=== PATIENT | male | born 1950 | race Caucasian/White ===

== ENCOUNTER → 2018-03-06 10:20 | Outpatient (BNVA) | payer MEDICARE, BC, SELFPAY | PROVIDERS: Visit Provider Student in an Organized Health Care Education/Training Program | DX: M75.81 Other shoulder lesions, right shoulder (principal); M19.032 Primary osteoarthritis, left wrist; I10 Essential (primary) hypertension | CPT/HCPCS: 20605; 20610; 99204; 99214; J1030; J1040; L3908 ==

== ENCOUNTER 2018-03-06 11:00 | Outpatient (CLI) | payer MEDICARE, BC, SELFPAY ==
--- NOTE | 2018-03-06 11:18 | DI.RAD_ITS ---
SYMPTOM/DIAGNOSISs: LEFT WRIST PAIN LEFT WRIST: Three views. No priors. There is marked narrowing of the scapho radial articulation. Subchondral sclerosis is seen. There is also some flattening of the articular surfaces in this region. There are also mild hypertrophic changes seen at the articulation between the scaphoid and the quadrangular bones. No acute fracture or dislocation is identified. There does appear to be mild widening of the scapholunate distance and scapholunate ligament tear cannot be excluded. There is a well corticated osseous density at the tip of the ulnar styloid process likely reflecting old injury. IMPRESSION: Degenerative changes of the left wrist particularly involving the scapho radial joint. 2. Question of widening of the scapholunate distance, raising the question of scapholunate ligament tear. Follow up as clinically appropriate.
--- NOTE | 2018-03-06 11:19 | DI.RAD_ITS ---
SYMPTOM/DIAGNOSIS: EVALUATE MID-ARM PAIN RIGHT HUMERUS: Two views. No bone or joint abnormality is identified. There is a calcification adjacent to the humeral head which may represent calcific tendinosis. The soft tissues are otherwise unremarkable. IMPRESSION: Negative examination.
== END 2018-03-06 11:20 ==
PROVIDERS: Visit Provider Student in an Organized Health Care Education/Training Program
DX: M79.621 Pain in right upper arm (principal); M75.31 Calcific tendinitis of right shoulder; M25.532 Pain in left wrist; M19.032 Primary osteoarthritis, left wrist
CPT/HCPCS: 20605; 20610; 99204; 99214; 73060; 73110; J1030; J1040; L3908

== ENCOUNTER 2018-03-30 00:58 | Outpatient (CLI) | payer MEDICARE, BC, SELFPAY ==
[2018-03-31 09:31] LABS: PSA, Diagnostic 4.2 ng/ml (0-4.5)
== END 2018-03-30 01:18 ==
PROVIDERS: PCP Emergency Medicine; Visit Provider Urology
DX: R97.20 Elevated prostate specific antigen [PSA] (principal); Z12.6 Encounter for screening for malignant neoplasm of bladder
CPT/HCPCS: 36415; 84153

== ENCOUNTER → 2018-11-04 08:22 | Outpatient (BNVA) | payer MEDICARE, BC, SELFPAY | PROVIDERS: PCP Emergency Medicine; Referring Provider Emergency Medicine; Visit Provider Student in an Organized Health Care Education/Training Program | DX: M65.331 Trigger finger, right middle finger (principal); M75.81 Other shoulder lesions, right shoulder; M25.511 Pain in right shoulder; C83.12 Mantle cell lymphoma, intrathoracic lymph nodes | CPT/HCPCS: 99212 ==

== ENCOUNTER → 2018-11-18 14:07 | Outpatient (BNVA) | payer MEDICARE, BC, SELFPAY | PROVIDERS: PCP Emergency Medicine; Referring Provider Emergency Medicine; Visit Provider Student in an Organized Health Care Education/Training Program | DX: M65.331 Trigger finger, right middle finger (principal); I10 Essential (primary) hypertension | CPT/HCPCS: 20600; 99212; 99213; J1030 ==

== ENCOUNTER 2019-04-26 11:09 | Outpatient (CLI) | payer MEDICARE, BC, SELFPAY ==
[2019-04-27 10:44] LABS: PSA, Diagnostic 6.6 ng/mL (0.0-6.5)
== END 2019-04-26 11:29 ==
PROVIDERS: PCP Emergency Medicine; Visit Provider Urology
DX: N52.9 Male erectile dysfunction, unspecified (principal); N40.0 Benign prostatic hyperplasia without lower urinary tract symptoms; R97.20 Elevated prostate specific antigen [PSA]; M65.331 Trigger finger, right middle finger; M19.032 Primary osteoarthritis, left wrist; M72.0 Palmar fascial fibromatosis [Dupuytren]
CPT/HCPCS: 36415; 99213; 84153; L3908

== ENCOUNTER 2019-05-11 07:00 | Outpatient (CLI) | payer MEDICARE, BC, SELFPAY ==
[2019-05-11 12:48] LABS: Abs Immature Grans 0.02 k/cumm (0.0-0.09); Absolute Basophil Count 0.04 k/cumm (0.0-0.2); Absolute Eosinophil Count 0.14 k/cumm (0.0-0.7); Absolute Lymphocyte Count 1.44 k/cumm (1.2-3.4); Absolute Monocyte Count 0.81 k/cumm (0.11-0.7); Absolute Neutrophil Count 6.46 k/cumm (1.2-6.7); Basophils % 0.4; Eosinophils % 1.6; HCT 42.4 % (40.0-50.0); HGB 14.3 g/dL (13.5-17.5); Immature Grans % 0.2; Lymphocytes % 16.2; Mean Corp. HGB Concentration 33.7 g/dL (32.0-36.0); Mean Corpuscular Hemoglobin 31.3 pg (27.0-33.0); Mean Corpuscular Volume 92.8 fL (80-95); Mean Platelet Volume 9.4 fL (8.0-11.0); Monocytes % 9.1; Neutrophils % 72.5; Platelet Count 269 x1000/uL (130-400); RBC 4.57 m/cumm (4.50-6.00); RBC Distribution Width 13.3 % (11.8-14.1); White Blood Cell Count 8.91 k/cumm (4.4-10.8)
[2019-05-11 13:13] LABS: ALT 27 U/L (16-63); AST 26 U/L (15-37); Albumin 4.2 g/dL (3.4-5.0); Alkaline Phosphatase 69 U/L (46-116); Amylase 57 U/L (25-115); Anion Gap 10.3 mmol/L (3-11); BUN 18 mg/dL (7-18); Bilirubin, Total 0.7 mg/dL (0.2-1.0); C-Reactive Protein 0.72 mg/dL (0.0-0.3); CO2 27.7 mmol/L (21.0-32.0); CREATININE 1.08 mg/dL (0.70-1.30); Calcium 9.6 mg/dL (8.5-10.1); Chloride 106 mmol/L (98-107); Glucose 116 mg/dL (74-106); Lipase 122 U/L (73-393); Potassium 3.7 mmol/L (3.5-5.1); Sodium 144 mmol/L (136-145); Total Protein 7.4 g/dL (6.4-8.2)
[2019-05-11 13:39] LABS: GGT 42 U/L (15-85)
[2019-05-11 13:55] LABS: ESR 22 mm/hr (1-20)
== END 2019-05-11 07:20 ==
PROVIDERS: PCP Emergency Medicine; Visit Provider Emergency Medicine
DX: E78.5 Hyperlipidemia, unspecified (principal); R19.8 Other specified symptoms and signs involving the digestive system and abdomen
CPT/HCPCS: 36415; 80053; 83690; 85652; 82150; 82977; 85025; 86140

== ENCOUNTER 2019-05-18 10:45 | Day surgery (SDC) | payer MEDICARE, BC, SELFPAY ==
--- NOTE | 2019-05-18 07:56 | PDOC.DSDIS_ITS ---
Discharge Plan Disposition Patient Disposition: HOME Condition: Good Discharge Details Reason For Visit: right middle trigger finger;Dupuytrens contracture Attending Provider: Varun Phillips Primary Care Provider: Jeffery Casiano Home Meds and New Rx's Prescriptions: New hydrocodone-acetaminophen 5-325 mg tablet 1 tab PO Q6H PRN (Reason: severe pain) Qty: 6 RF: 0 acetaminophen 500 mg tablet 500 mg PO Q6H PRN (Reason: pain) Qty: 60 RF: 2 Continued ibuprofen 200 mg capsule 200 mg PO TID PRNRF: 0 capsaicin [Capzasin-HP] 0.1 % cream 1 applic TP DAILY PRN RF: 0 tamsulosin 0.4 mg capsule 0.4 mg PO DAILY RF: 0 finasteride 5 mg tablet 5 mg PO DAILY RF: 0 amitriptyline 25 mg tablet 25 - 75 mg PO QHS Qty: 90 RF: 3 celecoxib 200 mg capsule 200 mg PO DAILY Qty: 30 RF: 4 omeprazole 20 mg capsule,delayed release(DR/EC) 20 mg PO BID RF: 0 Mylanta Maximum Strength 400-400-40 mg/5 mL suspension 30 ml PO BID RF: 0 aspirin [Aspirin Low-Strength] 81 MG tablet,chewable 81 mg PO DAILY RF: 0 clindamycin HCl 300 MG capsule 300 mg PO PRN RF: 0 ondansetron HCl 8 MG tablet 8 mg PO PRN RF: 0 triamcinolone acetonide 15 GM cream 15 gm Topical bid prn RF: 0 sertraline 50 mg tablet 50 mg PO DAILY Qty: 90 RF: 3 amlodipine [Norvasc] 10 mg tablet 10 mg PO DAILY Qty: 90 RF: 4 clonazepam [Klonopin] 1 mg tablet 1 mg PO HS Qty: 90 RF: 3 Discharge Instructions Additional Instructions: Dupuytren's Contracture Discharge Instructions Activity: You may use your fingers for light activity. You should limit any excessive motion or forceful gripping until the sutures have been removed. Dressings: You should keep the initial surgical dressing in place for at least 3 days. You may remove your dressings and get the wound wet after 3 days. You should keep the dressings and the wound clean at all times. You may keep the initial dressing in place until your follow-up but keep the wound covered with light gauze until the sutures are removed. Medications: - You should take Tylenol and Ibuprofen around the clock as prescribed or per glass production machine operator's recommendations. - You have Hydrocodone prescribed for breakthrough pain control. Take only as needed and limit use as much as possible. This may cause constipation. Follow-up: 7-10 days for wound check and suture removal. Stand Alone Forms: Alan Bronson Finger Release Referrals: Varun Phillips MD [ [facility] STAFF PHYSICIAN] - Activity:: Activity as Tolerated Remove Dressings/Wound Care:: 72 hours Shower/Bathe:: 72 hours Diet:: As Tolerated Discharge Orders Discharge Orders: Discharge Order (Routine); Ordered 05/18/19 Ordered By: Amelia Johnson DS: Diagnosis Discharge Diagnosis (1) Dupuytren's contracture of right hand: Status: Acute (2) Trigger finger, right middle finger: Status: Acute
[2019-05-18 11:03] VITALS: BP 138/84; PULSE 62; RESP 16; TEMP 36.1; O2SAT 96
[2019-05-18] MEDS: Clindamycin 300 MG CAP 600 MG PO (13:29)
[2019-05-18] MEDS: Sodium Bicarbonate 50 MEQ/50 ML VIAL (13:48)
--- NOTE | 2019-05-18 16:29 | W.PM.OP ---
Date of service: 05/18/19 Time of Service: 16:29 Operative Note Operative Note DATE OF PROCEDURE: 05/18/19 PRE-OP DIAGNOSIS: Right middle finger trigger finger, right palmar fasciitis (Dupuytren's) POST-OP DIAGNOSIS: same PROCEDURE: Right middle finger trigger finger release and partial palmar fasciectomy SURGEON: Varun Phillips ANESTHESIA: local ESTIMATED BLOOD LOSS: 5 PATHOLOGY: none sent TOURNIQUET TIME: 0 COMPLICATIONS: None Patient was transported to: same day Patient's condition: stable Indications: I have seen Idalia in clinic for symptoms of a trigger finger and a central cord of Dupuytren's disease. The catching, clicking, locking, limited motion and pain restricted function. The diagnosis of trigger finger was evident. The symptoms had not responded to conservative measures. I discussed trigger finger release with the patient. I reviewed the risks of the procedure to include, but not limited to, bleeding, infection, pain, stiffness, incomplete release, damage to nerves or vessels, continued catching, recurrence. Despite these risks, the patient elected to proceed. Findings: There is a thickened and scarred central cord. This was transected proximally in the palm and resected and whole up to the level of the MCP joint. There was a tightened A1 maddy which was released. The flexor tendons were inspected and the patient was able to move the finger without any catching, clicking, or locking. Procedure Description: Idalia was greeted in the preoperative holding area where the correct side was identified and marked. The consent was reviewed with the patient and signed. All questions were answered. He was taken back to the operating room. The patient was placed into the supine position on the operating room table with the right arm on an arm board. All bony prominences were well padded. No prophylactic antibiotics were administered since this was a clean, elective hand surgical case. The right arm was then prepped with Chloraprep and draped in a standard fashion with stockinette and extremity drape. A timeout to confirm correct identity, side and site, procedure, allergies, anesthesia, and medical concerns was performed. The surgical site was marked as a Blaze type incision from the MCP joint and across the palmar creases overlying the flexor tendons and the central cord. This was confirmed with palpation during finger flexion. This area was then anesthetized with 1% Lidocaine with epinephrine and buffered with sodium bicarbonate. The patient tolerated this well and once the anesthetic had setup, the procedure began. An incision was made through skin only. The deep tissues were dissected bluntly. The fibrous central cord was resected from the overlying skin. It was followed proximally staying in the plane between the skin and the cord. It was then transected in a very proximal position and elevated out of the hand. Attachments over its dorsal surface were transected against the cord. This was taken all the way up to the level of the MCP joint and then released. There is no notable residual cord in this area. Some blunt dissection was then performed to identify the flexor tendons and the A1 maddy. Once the A1 maddy and flexor tendons were identified the soft tissue including neurovascular structures were retracted medially and laterally. There were no crossing structures over the A1 maddy. The proximal edge of the maddy was identified and the maddy was incised with tenotomy scissors. There was a release of the tendons once this was fully released. There was some notable synovial fluid which also released once the A1 maddy was transected. The tendons were then removed from the wound and inspected. Excess synovium was resected. The tendons were then returned and the patient was asked to move the finger into deep flexion and back to extension. There was no recreation of the pre-operative symptoms. The hand was then once more inspected for any A0 maddy or area of possible constriction. The wound was then irrigated and the skin was closed with a 4-0 Nylon. This was dressed with gauze and a Conform dressing. The patient tolerated the procedure well and was returned to the Same Day Surgery area in a stable condition suffering no known complication.
== END 2019-05-18 14:30 | disposition home or self-care (01) ==
LOC: SUR 10:46
PROVIDERS: PCP Emergency Medicine; Visit Provider Student in an Organized Health Care Education/Training Program
PROC: (CPT 26055; principal; 2019-05-18 13:45)
PROC: (CPT 26045; 2019-05-18 13:45)
DX: M72.0 Palmar fascial fibromatosis [Dupuytren] (principal); M65.331 Trigger finger, right middle finger
CPT/HCPCS: 26123; 26055; L3908

== ENCOUNTER → 2019-05-31 14:57 | Outpatient (BNVA) | payer MEDICARE, BC, SELFPAY | PROVIDERS: PCP Emergency Medicine; Referring Provider Emergency Medicine; Visit Provider Student in an Organized Health Care Education/Training Program | DX: Z47.89 Encounter for other orthopedic aftercare (principal); M65.331 Trigger finger, right middle finger; M72.0 Palmar fascial fibromatosis [Dupuytren] ==

== ENCOUNTER → 2019-06-04 12:46 | Outpatient (BNVA) | payer MEDICARE, BC, SELFPAY | PROVIDERS: PCP Emergency Medicine; Referring Provider Emergency Medicine; Visit Provider Physical Therapy Assistant | DX: K21.9 Gastro-esophageal reflux disease without esophagitis (principal); Z12.11 Encounter for screening for malignant neoplasm of colon; Z86.010 Personal history of colon polyps; I10 Essential (primary) hypertension | CPT/HCPCS: 99213 ==

== ENCOUNTER 2019-06-10 07:05 | Day surgery (SDC) | payer MEDICARE, BC, SELFPAY ==
[2019-06-10 07:19] VITALS: BP 133/88; PULSE 64; RESP 16; TEMP 36.4; O2SAT 96
[2019-06-10] MEDS: Lactated Ringers 1,000 ML 80 ML IV (07:45)
[2019-06-10] MEDS: Sodium Citrate 30 ML CUP (08:30)
--- NOTE | 2019-06-10 08:30 | STOM_PTH ---
PATIENT: Idalia Estrada LOC: [facility] U#:[id number] AGE/SX: 68/M ROOM: RE06/10/[address]: Amelia Walter : 1950 BED: DIS: 06/10/2019 SPEC #: [id number] RECD: 06/10/19 12:31 STATUS: MITCHELL KEITH #: [id number] NERISSA: 06/10/19 08:[address]: Amelia Walter DEPT: Surgical Specimen RECD BY: Melany Lorenzo ENTERED: 06/10/19 12:34 SP TYPE: STOMACH OTHR DR: Jeffery Casiano DO Tissues: 1 - BIOPSY BOWEL 2 - STOMACH BIOPSY 3 - STOMACH BIOPSY 4 - ESOPHAGUS BIOPSY 5 - ESOPHAGUS BIOPSY 6 - BIOPSY BOWEL 7 - BIOPSY BOWEL 8 - BIOPSY BOWEL Procedures: GROSS AND MICRO LEVEL 4 Comments: [id number]
--- NOTE | 2019-06-10 09:39 | W.PM.DSUDISC ---
Discharge Plan Disposition Patient Disposition: HOME Condition: Good Discharge Details Reason For Visit: SCREENING,GERD Attending Provider: Amelia Walter Primary Care Provider: Jeffery Casiano Home Meds and New Rx's Prescriptions: New pantoprazole [Protonix] 40 mg tablet,delayed release (DR/EC) 40 mg PO DAILY Qty: 30 RF: 12 sucralfate [Carafate] 1 gram tablet 1 gm PO QACHS PRN (Reason: heartburn) Qty: 120 RF: 12 Continued capsaicin [Capzasin-HP] 0.1 % cream 1 applic TP DAILY PRN RF: 0 tamsulosin 0.4 mg capsule 0.4 mg PO DAILY RF: 0 ibuprofen 200 mg capsule 200 mg PO PRN PRNRF: 0 finasteride 5 mg tablet 5 mg PO DAILY RF: 0 Mylanta Maximum Strength 400-400-40 mg/5 mL suspension 20 ml PO TID RF: 0 clindamycin HCl 300 MG capsule 300 mg PO PRN RF: 0 triamcinolone acetonide 15 GM cream 15 gm Topical bid prn RF: 0 sertraline 50 mg tablet 50 mg PO DAILY Qty: 90 RF: 3 clonazepam [Klonopin] 1 mg tablet 1 mg PO HS Qty: 90 RF: 3 acetaminophen 500 mg tablet 500 mg PO Q6H PRN (Reason: pain) Qty: 60 RF: 2 amlodipine [Norvasc] 10 mg tablet 20 mg PO DAILY RF: 0 Discontinued omeprazole 20 mg capsule,delayed release(DR/EC) 20 mg PO BID RF: 0 polyethylene glycol 3350 17 gram/dose powder 238 g PO ONCE Qty: 238 RF: 0 bisacodyl [Dulcolax (bisacodyl)] 5 mg tablet,delayed release (DR/EC) 5 mg PO ONCE Qty: 4 RF: 0 aspirin [Aspirin Low-Strength] 81 MG tablet,chewable 81 mg PO DAILY RF: 0 Discharge Instructions Additional Instructions: Findings: Lg hiatal henria chronic reflux mult polyps. prob repeat CE in 3 yrs time Continue with lifestyle modifications: no alcohol, tobacco products, Aspirin or NSAID's (ibuprofen, Motrin, Naprosyn, aleve, etc), soda pop/any carbonated beverages, caffeine (including tea & chocolate). Try to limit: and acidic foods, (tomatoes, citrus, onions, peppermints) spicy or fried/fatty foods. Do not lie down for 30 minutes after eating, and do not eat 2 hours prior to bedtime. Avoid wearing tight fitting clothing/ belts. Take a carafate before taking any NSAID's. Stop taking daily ASA. Stop prilosec and switch to Protonix. Use Carafate x4 /day for two weeks, than change to as needed and before taking any NSAID's. Follow up: 2 wks in office Please call if you develop: fevers >101.5 Nausea or Vomiting Abdominal pain that is not transient DAY SURGERY UNIT POST COLONOSCOPY INSTRUCTIONS 1. Because there will be medication in your system for the next 24 hours, you may feel a little sleepy. Your coordination will be affected. Therefore: a. Do not drive or operate dangerous equipment for 24 hours. b. Do not drink alcohol beverages for 24 hours (not even beer). c. Plan to go home and rest for the day. 2. Generally there are no restrictions on your activity after a day or so has gone by, but you may feel a bit fatigued for a few days. 3 After you arrive home you may have a light meal and return to a normal diet as you can tolerate it without feeling sick to your stomach. 4. After surgery, you may feel pain or discomfort. This should be only transient, but if it persists please contact your doctor. 5. If there are any questions regarding the findings of your procedure, please feel free to contact your doctor. 6. If you are unable to contact your doctor with a problem, contact the hospital at [phone]. 7. Continue all your regular medications unless directed otherwise. I understand the above instructions and have no questions. Signature of Patient or Responsible Adult Escort Date/Time Name of Responsible Adult Escort Signature of Nurse Date/Time Stand Alone Forms: DSU Post EGD Instructions, Ania Amor (DSU) Discharge Orders Discharge Orders: Discharge Order (Routine); Ordered 06/10/19 Ordered By: Amelia Walter
--- NOTE | 2019-06-10 09:52 | ENDO_ITS ---
Date of service: 06/10/19 Time of Service: 09:52 Endoscopy Report DATE OF PROCEDURE: 06/10/19 PRE-OP DIAGNOSIS: breakthru s/s of GERD/A. polyps POST-OP DIAGNOSIS: other (lg hiatal hernia/reflux mult polyps ) PROCEDURE: EGD and BX Ce and polyp SURGEON: Amelia Walter ANESTHESIA: GETA ESTIMATED BLOOD LOSS: 3 PATHOLOGY: other DISPOSITION: same day PREP: Miralax/Dulcolax COLONOSCOPY RETRACTION TIME: 20 mins PROCEDURE DESCRIPTION: After informed consent was obtained the patient was take to the procedure room and placed in a supine position. Monitors were applied and a time out was done. The patients name, date of , procedure type, allergies to medications and metal in their body was reviewed. A bite block was placed and the patient was sedated. Once sedated and comfortable the larissa roscope was advanced through the oropharynx which was grossly normal into the esophagus. The proximal and mid-esophagus were nl. In the distal esophagus there was esophagitis noted. There were changes noted that could be associated w/ Barett's. All specimens are retrieved and no bleeding is noted. The scope was advanced into the stomach and through the pylorus into the 3rd portion of the duodenum. The duodenum was noted to be nl. Biopsies were done. The scope was retracted back into the stomach and biopsies were done to rule out H. pylori. There were no ulcers or gastritis. The scope was retroflexed. The cardia and fundus were noted to be normal. There lg a hiatal hernia noted. The scope was retracted back into the esophagus and biopsies were done of the GE junction to rule out Anderson's. The Z line was irregular. scopes were than exchanged. Once sedated and comfortable a rectal exam was done. External exam was normal. Internal exam revealed a normal sphincter tone and no palpable masses. The scope was then introduced and retrofelexed. no internal hemorrhoids were identified. The scope was then advanced to the cecum w/ difficult all specimens are retrieved and no bleeding is noted. The TI and appendiceal orifice were identified. The prep was good. The scope was then slowly retracted over 20 minutes back into the rectum. Polyps were removed at: 80cm x3 w/ hot snare. 70cm x2 w/ hot forcept x2. 60cm transverse colon w/ hot forcept. .No diverticula, AVM's. The mucosa and vascular appear nl and healthy. The scope was removed and the patient was woken up and taken back to Same day surgery in stable condition. The patient tolerated the procedure well and there were no immediate complications. Follow up: The patient should follow up in 3 years- path pd, unless they develop changes in bowel habits or other new gastrointestinal complaints.
[2019-06-10 10:25] VITALS: BP 128/81; PULSE 48; RESP 16; TEMP 36.3; O2SAT 99
== END 2019-06-10 11:27 | disposition home or self-care (01) ==
PROVIDERS: PCP Emergency Medicine; Visit Provider Surgery
PROC: (CPT 45385; principal; 2019-06-10 08:15)
DX: Z12.11 Encounter for screening for malignant neoplasm of colon (principal); D12.3 Benign neoplasm of transverse colon; D12.0 Benign neoplasm of cecum; Z86.010 Personal history of colon polyps; K21.0 Gastro-esophageal reflux disease with esophagitis; K31.89 Other diseases of stomach and duodenum; K29.80 Duodenitis without bleeding; K44.9 Diaphragmatic hernia without obstruction or gangrene; I10 Essential (primary) hypertension
CPT/HCPCS: 45385; 45384; 43239; 88305; J2001; J2704

== ENCOUNTER → 2019-06-30 08:57 | Outpatient (BNVA) | payer MEDICARE, BC, SELFPAY | PROVIDERS: PCP Emergency Medicine; Referring Provider Emergency Medicine; Visit Provider Surgery | DX: K63.5 Polyp of colon (principal) | CPT/HCPCS: 99214 ==

== ENCOUNTER 2019-08-16 10:07 | Day surgery (SDC) | payer MEDICARE, BC, SELFPAY ==
[2019-08-16 10:40] VITALS: BP 126/82; PULSE 59; RESP 16; TEMP 36.7; O2SAT 96
[2019-08-16] MEDS: Lactated Ringers 1,000 ML 100 ML IV (11:15)
--- NOTE | 2019-08-16 11:27 | HPE_ITS ---
Date of service: 08/16/19 Time of Service: 11:28 Assessment and Plan Assessment and plan (1) Serrated adenoma of colon: Status: Acute (2) Tubulovillous adenoma polyp of colon: Status: Acute Assessment and plan: Informed consent is obtained for the procedural (explained in simple layman's terms that the pt and/or family could understand) explaining risks vs benefits and alternatives to the procedure and consequences if we do not do the procedure and need/rational for the procedure. Risks include but are not limited to: bleeding, infection, perforation of esophagus, stomach, colon, small intestines, bronchus or trachea, or PTX. This would necessitate emergency surgery to repair the damage w/ possible ostomy; and other associated complications w/ the required surgery. Also complications of anesthesia including aspiration, ND/CVA/. 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 70cm x2 w/ hot forcept x2. 60cm transverse colon w/ hot forcept. Pt has a hx of polyps and extensive hx of familial CRC. pt is here toay for jo CE He does have lymphoma and [place] [facility] [place] of Systems All systems reviewed & are unremarkable except as noted in HPI and below [facility] Medical History Duodenitis without hemorrhage (Acute) Dupuytren's contracture of right hand (Acute) Dysplastic colon polyp (Acute) Elevated PSA (Acute) Esophagitis on biopsy (Acute) Gastro-esophageal reflux (Chronic) Gastropathy (Acute) Hiatal hernia (Chronic) Hyperlipidemia (Acute) Hypertension (Chronic) Internal hemorrhoids (Acute) Mantle cell lymphoma (Acute) Serrated adenoma of colon (Acute) Sleep disturbance (Acute) Tubulovillous adenoma polyp of colon (Acute) Surgical History Colonoscopy - [facility] [place] 2013 History of total bilateral knee replacement (TKR) (Acute) Family History Brother Mantle cell lymphoma Social History Smoking/Tobacco Use Status: Former Tobacco Use Quit Date: 06/09/83 Alcohol Intake: current Alcohol Intake frequency: a few times a month Alcohol type: beer Drug use: Occasionally Substance use type: marijuana Details: T-6 WEEKS, Liquid oil (THC and CBD) Household members: spouse Current gender identity: male Do you feel safe at home: Yes Do you feel safe in your relationship?: Yes Meds Home Medications and Allergies Home Medications Medication Instructions Recorded Confirmed Type clindamycin HCl 300 mg PO PRN cap 03/05/16 08/16/19 History tamsulosin 0.4 mg capsule 0.4 mg PO DAILY 05/26/18 08/16/19 History finasteride 5 mg tablet 5 mg PO DAILY 08/27/18 08/16/19 History aluminum-mag hydroxide-simethicone 20 ml PO TID ml 05/14/19 08/16/19 History 400 mg-400 mg-40 mg/5 mL oral susp acetaminophen 500 mg PO Q6H PRN #60 tab 05/18/19 08/16/19 Rx amlodipine [Norvasc] 20 mg PO DAILY 06/10/19 08/16/19 History pantoprazole [Protonix] 40 mg PO DAILY #30 tab 06/10/19 08/12/19 Rx sucralfate [Carafate] 1 gm PO QACHS PRN #120 tab 06/10/19 08/16/19 Rx clonazepam 1 mg tablet 1 mg PO HS #90 tab 06/23/19 08/16/19 Rx bisacodyl 5 mg tablet,delayed 5 mg PO ONCE #4 tab 07/06/19 08/16/19 Rx release polyethylene glycol 3350 17 238 g PO ONCE #238 gm 07/06/19 08/12/19 Rx gram/dose oral powder sertraline 50 mg tablet 50 mg PO DAILY #90 tab-cap 07/23/19 08/16/19 Rx Allergies Allergy/AdvReac Type Severity Reaction Status Date / Time Penicillins Allergy Severe HIVES Verified 08/16/19 10:32 Cephalosporins Allergy Intermediate Hives Verified 08/16/19 10:32 Sulfa (Sulfonamide Allergy Intermediate HIVES Verified 08/16/19 10:32 Antibiotics) rituximab AdvReac Intermediate Other (See Verified 08/16/19 10:32 Comment) FABBY Inhibitors AdvReac Unknown COUGH Verified 08/16/19 10:32 Exam Const General: cooperative, healthy appearing, comfortable, no acute distress, well developed and well groomed Nutritional Appearance: average body habitus and well nourished Orientation: alert, awake and oriented x3 HENMT Head: normal to inspection, normocephalic and atraumatic Ears: hearing grossly normal bilaterally and external ears normal General nose exam: external nose normal Face and sinus: normal facial exam and sinuses nontender Mouth: oral mucosae normal, lip normal, tongue normal and moist mucous membranes Teeth and gingiva: dentition normal Eyes General: appearance normal, both eyes and all related structures Conjunctivae: conjunctivae normal Sclera: sclerae normal Pupils: PERRL Neck Neck: normal visual inspection and full ROM Chest Chest: normal inspection of the chest Resp Effort & Inspection: normal respiratory effort, able to speak in complete sentences, no cough, no nasal flaring, not tachypneic and no use of accessory muscles Auscultation: clear to auscultation bilaterally, no rales, no rhonchi and no wheezes Cardio Jugular venous pressure: no JVD Rate: regular rate Rhythm: regular rhythm GI Inspection: normal to inspection, no edema and non-distended Palpation: soft, no masses, nontender and No ascites Auscultation: normal bowel sounds Skin General skin exam: no rashes or lesions noted Trauma: no lacerations or abrasions Neuro General: alert, oriented x3, oriented, gait normal, moves all extremities, no focal motor deficits and CN's II-XI intact bilaterally Cognition: normal cognition Speech: speech normal Gait: normal gait Motor: muscle tone normal throughout Extrem General: normal to inspection, full ROM and no clubbing, cyanosis or edema Psych Appearance: grossly normal and well kempt Mental Status: mental status grossly normal Speech and Movement: speech and movement normal Affect: normal affect Results Last Vital Signs Temp 36.7 C 08/16/19 10:40 Pulse 59 L 08/16/19 10:40 Resp 16 08/16/19 10:40 BP 126/82 08/16/19 10:40 Pulse Ox 96 08/16/19 10:40
--- NOTE | 2019-08-16 13:02 | NUR.NOTE ---
Assumed care at 1300. A&O X3. Up to BR to void. IV access patent and intact with IV fluid infusing well. Waiting for procedure.Nursing Note:
--- NOTE | 2019-08-16 13:55 | BOWEL_PTH ---
PATIENT: Idalia Estrada LOC: [facility] U#:[id number] AGE/SX: 68/M ROOM: RE08/16/[address]: Amelia Walter : 1950 BED: DIS: 08/16/2019 SPEC #: [id number] RECD: 08/16/19 18:09 STATUS: MITCHELL REQ #: [id number] NERISSA: 08/16/19 13:[address]: Amelia Walter DEPT: Surgical Specimen RECD BY: Melany Lorenzo ENTERED: 08/16/19 18:09 SP TYPE: Bowel OTHR DR: Jeffery Casiano DO Tissues: 1 - BIOPSY BOWEL Procedures: GROSS AND MICRO LEVEL 4 Comments: [id number]
--- NOTE | 2019-08-16 14:33 | W.COLOREPORT ---
Date of service: 08/16/19 Time of Service: 21:44 Colonoscopy Report Date of procedure: 08/16/19 Pre-op diagnosis general: dysplastic polyps Post-op diagnosis procedure note: same Procedure: polyp in ceceum Surgeon: Zaheer Corona Anesthesia proc note operative: GETA Estimated blood loss (mL): 1 Pathology: other Complications: None Disposition: same day Prep: Miralax/Dulcolax Retraction Time: 15 Procedure Description: After informed consent was obtained the patient was taken to the procedure room and placed in a left decubitous position. Monitors were applied and a time out was done. The patients name, date of , procedure, allergies to medications and metal in their body was reviewed. The patient was then sedated. Once sedated and comfortable a rectal exam was done. External exam was normal. Internal exam revealed a normal sphincter tone and no palpable masses. The scope was then introduced and retrofelexed. Grade II internal hemorrhoids were identified. The scope was then advanced to the cecum w/out difficulty. The TI and appendiceal orifice were identified. The prep was good. The scope was then slowly retracted over 15 minutes back into the rectum. Polyps were removed at x2 in ceum. Specimen is retrieved and no bleeding is noted. The polyps that were previously 60/70/80 centimeters?there is no signs of any residual polyp process. Few small scattered diverticuli in the sigmoid colon. No signs of active bleeding or infection. The scope was removed and the patient was woken up and taken back to Same day surgery in stable condition. The patient tolerated the procedure well and there were no immediate complications. Follow up: The patient should follow up in 6m unless they develop changes in bowel habits or other new gastrointestinal complaints.
--- NOTE | 2019-08-16 14:35 | PDOC.DSDIS_ITS ---
Discharge Plan Disposition Patient Disposition: HOME Condition: Good Discharge Details Reason For Visit: SCREENING Attending Provider: Amelia Walter Primary Care Provider: Jeffery Casiano Home Meds and New Rx's Prescriptions: Continued tamsulosin 0.4 mg capsule 0.4 mg PO DAILY RF: 0 finasteride 5 mg tablet 5 mg PO DAILY RF: 0 Mylanta Maximum Strength 400-400-40 mg/5 mL suspension 20 ml PO TID RF: 0 clindamycin HCl 300 MG capsule 300 mg PO PRN RF: 0 clonazepam [Klonopin] 1 mg tablet 1 mg PO HS Qty: 90 RF: 3 sertraline 50 mg tablet 50 mg PO DAILY Qty: 90 RF: 3 acetaminophen 500 mg tablet 500 mg PO Q6H PRN (Reason: pain) Qty: 60 RF: 2 amlodipine [Norvasc] 10 mg tablet 20 mg PO DAILY RF: 0 pantoprazole [Protonix] 40 mg tablet,delayed release (DR/EC) 40 mg PO DAILY Qty: 30 RF: 12 sucralfate [Carafate] 1 gram tablet 1 gm PO QACHS PRN (Reason: heartburn) Qty: 120 RF: 12 Discontinued polyethylene glycol 3350 17 gram/dose powder 238 g PO ONCE Qty: 238 RF: 0 bisacodyl [Dulcolax (bisacodyl)] 5 mg tablet,delayed release (DR/EC) 5 mg PO ONCE Qty: 4 RF: 0 Discharge Instructions Additional Instructions: Findings: x1 small cecal polyp today polyps at 60/70/80cm- no residual Dx today. Follow up: repeat scopes in 6m Please call if you develop: fevers >101.5 Nausea or Vomiting Abdominal pain that is not transient DAY SURGERY UNIT POST COLONOSCOPY INSTRUCTIONS 1. Because there will be medication in your system for the next 24 hours, you may feel a little sleepy. Your coordination will be affected. Therefore: a. Do not drive or operate dangerous equipment for 24 hours. b. Do not drink alcohol beverages for 24 hours (not even beer). c. Plan to go home and rest for the day. 2. Generally there are no restrictions on your activity after a day or so has gone by, but you may feel a bit fatigued for a few days. 3 After you arrive home you may have a light meal and return to a normal diet as you can tolerate it without feeling sick to your stomach. 4. After surgery, you may feel pain or discomfort. This should be only transie nt, but if it persists please contact your doctor. 5. If there are any questions regarding the findings of your procedure, please feel free to contact your doctor. 6. If you are unable to contact your doctor with a problem, contact the hospital at [phone]. 7. Continue all your regular medications unless directed otherwise. I understand the above instructions and have no questions. Signature of Patient or Responsible Adult Escort Date/Time Name of Responsible Adult Escort Signature of Nurse Date/Time Activity:: No lifting over 20 pounds or strenuous activity x24 hours. 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
[2019-08-16 14:59] VITALS: BP 134/86; PULSE 50; RESP 16; TEMP 36.4; O2SAT 97
== END 2019-08-16 15:28 | disposition home or self-care (01) ==
PROVIDERS: PCP Emergency Medicine; Visit Provider Surgery
PROC: 0DJD8ZZ Inspection of Lower Intestinal Tract, Via Natural or Artificial Opening Endoscopic (ICD-10-PCS; CPT 45378; principal; 2019-08-16 11:30)
DX: Z12.11 Encounter for screening for malignant neoplasm of colon (principal); Z86.010 Personal history of colon polyps; K63.5 Polyp of colon; K64.1 Second degree hemorrhoids; K57.30 Diverticulosis of large intestine without perforation or abscess without bleeding; I10 Essential (primary) hypertension; K21.9 Gastro-esophageal reflux disease without esophagitis
CPT/HCPCS: 45380; 88305; NC

== ENCOUNTER → 2020-03-17 14:26 | Outpatient (BNVA) | payer MEDICARE, BC, SELFPAY | PROVIDERS: PCP Emergency Medicine; Referring Provider Emergency Medicine; Visit Provider Surgery | DX: Z12.11 Encounter for screening for malignant neoplasm of colon (principal); Z86.010 Personal history of colon polyps; Z80.0 Family history of malignant neoplasm of digestive organs | CPT/HCPCS: 99212 ==

== ENCOUNTER 2020-03-23 08:04 | Day surgery (SDC) | payer MEDICARE, BC, SELFPAY ==
[2020-03-23 08:05] VITALS: BP 131/86; PULSE 61; RESP 18; TEMP 36.8; O2SAT 97
[2020-03-23] MEDS: Lactated Ringers 1,000 ML 80 ML IV (08:45)
--- NOTE | 2020-03-23 09:50 | BOWEL_PTH ---
PATIENT: Idalia Estrada LOC: [facility] U#:[id number] AGE/SX: 69/M ROOM: RE03/23/[address]: Amelia Walter : 1950 BED: DIS: 03/23/2020 SPEC #: [id number] RECD: 03/23/20 12:44 STATUS: MITCHELL REQ #: [id number] NERISSA: 03/23/20 09:[address]: Amelia Walter DEPT: Surgical Specimen RECD BY: Melany Lorenzo ENTERED: 03/23/20 12:45 SP TYPE: Bowel OTHR DR: Jeffery Casiano DO Tissues: 1 - BIOPSY BOWEL 2 - BIOPSY BOWEL 3 - BIOPSY BOWEL 4 - BIOPSY BOWEL Procedures: GROSS AND MICRO LEVEL 4 Comments: [id number]
[2020-03-23 10:20] VITALS: BP 141/109; PULSE 52; RESP 16; TEMP 36.4; O2SAT 99
[2020-03-23 10:25] VITALS: BP 101/60; PULSE 54; RESP 12; TEMP 36.4; O2SAT 99
--- NOTE | 2020-03-23 10:27 | W.COLOREPORT ---
Date of service: 03/23/20 Time of Service: 10:28 Colonoscopy Report Date of procedure: 03/23/20 Pre-op diagnosis general: polyps w/ dysplasia + family history Post-op diagnosis procedure note: same Procedure: poly[pectomy- mult Anesthesia proc note operative: GETA Estimated blood loss (mL): 2 Pathology: other Complications: None Disposition: same day Prep: Miralax/Dulcolax Retraction Time: 60 mins Procedure Description: After informed consent was obtained the patient was taken to the procedure room and placed in a left decubitous position. Monitors were applied and a time out was done. The patients name, date of , procedure, allergies to medications and metal in their body was reviewed. The patient was then sedated. Once sedated and comfortable a rectal exam was done. External exam was normal. Internal exam revealed a normal sphincter tone and no palpable masses. The prostate nl. The scope was then introduced and retrofelexed. No internal hemorrhoids were identified. The scope was then advanced to the cecum w/out difficulty. The TI and appendiceal orifice were identified. The prep was good. The scope was then slowly retracted over 60 minutes back into the rectum. All specimens are retrieved and no bleeding is noted. x1 @ 70cm/ascending. x3 @ 60cm/transverse. x1 @ 50cm/transverse. x1 @ 20cm/sigmoid. Multiple polyps are removed. There are no diverticula or AV's apparent. The mucosa is pink and healthy. 2 were removed w/ a hot bx forcept. The rest are removed w/ cold forcept. The scope was removed and the patient was woken up and taken back to Same day surgery in stable condition. The patient tolerated the procedure well and there were no immediate complications. Follow up: The patient should follow up in 6-12m unless they develop changes in bowel habits or other new gastrointestinal complaints.
[2020-03-23 10:30] VITALS: BP 122/74; PULSE 52; RESP 12; TEMP 36.4; O2SAT 99
[2020-03-23 10:35] VITALS: BP 120/70; PULSE 49; RESP 14; TEMP 36.5; O2SAT 100
[2020-03-23 11:15] VITALS: BP 138/81; PULSE 52; RESP 16; TEMP 36.4; O2SAT 96
--- NOTE | 2020-03-23 11:31 | W.PM.DSUDISC ---
Discharge Plan Disposition Patient Disposition: HOME Condition: Good Discharge Details Reason For Visit: colon scope and [id number] removal Attending Provider: Amelia Waletr Primary Care Provider: Jeffery Casiano Home Meds and New Rx's Prescriptions: Continued tramadol 50 mg tablet 50 mg PO DAILY PRN (Reason: pain) Qty: 30 RF: 3 potassium chloride 20 mEq tablet extended release 20 meq PO DAILY RF: 0 minocycline 100 mg capsule 100 mg PO BID RF: 0 omega-3 fatty acids [Fish Oil Concentrate] 1,000 mg capsule 1,000 mg PO DAILY RF: 0 cholecalciferol (vitamin D3) 25 mcg (1,000 unit) capsule 25 mcg PO DAILY RF: 0 tamsulosin 0.4 mg capsule 0.4 mg PO DAILY RF: 0 finasteride 5 mg tablet 5 mg PO DAILY RF: 0 clindamycin HCl 300 MG capsule 300 mg PO PRN RF: 0 sertraline 50 mg tablet 50 mg PO DAILY Qty: 90 RF: 3 amlodipine [Norvasc] 10 mg tablet 10 mg PO DAILY Qty: 90 RF: 3 clonazepam [Klonopin] 1 mg tablet 1 mg PO HS Qty: 90 RF: 3 acetaminophen 500 mg tablet 500 mg PO Q6H PRN (Reason: pain) Qty: 60 RF: 2 pantoprazole [Protonix] 40 mg tablet,delayed release (DR/EC) 40 mg PO DAILY Qty: 30 RF: 12 sucralfate [Carafate] 1 gram tablet 1 gm PO QACHS PRN (Reason: heartburn) Qty: 120 RF: 12 Discontinued polyethylene glycol 3350 17 gram/dose powder 238 g PO ONCE Qty: 238 RF: 0 bisacodyl [Dulcolax (bisacodyl)] 5 mg tablet,delayed release (DR/EC) 5 mg PO ONCE Qty: 4 RF: 0 Discharge Instructions Additional Instructions: Findings:x6 polyps no ASA/NSAID's x 2 wks. no strenuous activity for 72 hrs Follow up:repeat scope in 6 months time Please call if you develop: fevers >101.5 Nausea or Vomiting Abdominal pain that is not transient DAY SURGERY UNIT POST COLONOSCOPY INSTRUCTIONS 1. Because there will be medication in your system for the next 24 hours, you may feel a little sleepy. Your coordination will be affected. Therefore: a. Do not drive or operate dangerous equipment for 24 hours. b. Do not drink alcohol beverages for 24 hours (not even beer). c. Plan to go home and rest for the day. 2. Generally there are no restrictions on your activity after a day or so has gone by, but you may feel a bit fatigued for a few days. 3 After you arrive home you may have a light meal and return to a normal diet as you can tolerate it without feeling sick to your stomach. 4. After surgery, you may feel pain or discomfort. This should be only transient, but if it persists please contact your doctor. 5. If there are any questions regarding the findings of your procedure, please feel free to contact your doctor. 6. If you are unable to contact your doctor with a problem, contact the hospital at [phone]. 7. Continue all your regular medications unless directed otherwise. I understand the above instructions and have no questions. Signature of Patient or Responsible Adult Escort Date/Time Name of Responsible Adult Escort Signature of Nurse Date/Time Activity:: no lifting over 20#'s or strenuous activity x 72 hrs Diet:: small light meals x 24 hrs. Discharge Orders Discharge Orders: Discharge Order (Routine); Ordered 03/23/20 Ordered By: Amelia Walter DS: Diagnosis Discharge Diagnosis (1) Tubulovillous adenoma polyp of colon: Status: Acute (2) Dysplastic colon polyp: Status: Acute (3) Gastropathy: Status: Acute
== END 2020-03-23 11:45 | disposition home or self-care (01) ==
PROVIDERS: PCP Emergency Medicine; Visit Provider Surgery
PROC: 0DJD8ZZ Inspection of Lower Intestinal Tract, Via Natural or Artificial Opening Endoscopic (ICD-10-PCS; CPT 45378; principal; 2020-03-23 09:30)
DX: Z12.11 Encounter for screening for malignant neoplasm of colon (principal); K63.5 Polyp of colon; Z86.010 Personal history of colon polyps; Z80.0 Family history of malignant neoplasm of digestive organs
CPT/HCPCS: 45384; 45380; 88305; J2001

== ENCOUNTER 2020-06-21 04:30 | Outpatient (CLI) | payer MEDICARE, BC, SELFPAY ==
[2020-06-21 22:38] LABS: PSA, Diagnostic 3.9 ng/mL (0.0-6.5)
== END 2020-06-21 04:50 ==
PROVIDERS: PCP Emergency Medicine; Visit Provider Urology
DX: R97.20 Elevated prostate specific antigen [PSA] (principal)
CPT/HCPCS: 36415; 84153

== ENCOUNTER 2020-07-03 05:07 | Outpatient (CLI) | payer MEDICARE, BC, SELFPAY ==
[2020-07-03 13:18] LABS: TSH 1.67 uIU/mL (0.36-3.74)
[2020-07-05 16:59] LABS: Testosterone, Free 11.6 ng/dL (3.28-12.2); Testosterone, Total 446 ng/dL (240-950)
== END 2020-07-03 05:27 ==
PROVIDERS: PCP Emergency Medicine; Visit Provider Urology
DX: R39.9 Unspecified symptoms and signs involving the genitourinary system (principal); I10 Essential (primary) hypertension
CPT/HCPCS: 36415; 84402; 84403; 84443

== ENCOUNTER → 2020-11-24 14:23 | Outpatient (BNVA) | payer MEDICARE, BC, SELFPAY | PROVIDERS: PCP Emergency Medicine; Referring Provider Emergency Medicine; Visit Provider Physical Therapy Assistant | DX: Z12.11 Encounter for screening for malignant neoplasm of colon (principal); Z86.010 Personal history of colon polyps ==

== ENCOUNTER 2020-12-01 11:06 | Day surgery (SDC) | payer MEDICARE, BC, SELFPAY ==
--- NOTE | 2020-12-01 11:17 | COLE_ITS ---
Date of service: 12/01/20 Time of Service: 11:17 Colonoscopy Report Date of procedure: 12/01/20 Pre-op diagnosis general: serrated A w/ dysplasia & Villous adenoma in 06/28- 70- 80cm Post-op diagnosis procedure note: same Surgeon: Amelia Walter Anesthesia Type: General:No Airway Pathology: other Complications: None Disposition: same day Prep: Miralax/Dulcolax Retraction Time: 10 Procedure Description: After informed consent was obtained the patient was taken to the procedure room and placed in a left decubitous position. Monitors were applied and a time out was done. The patients name, date of , procedure, allergies to medications and metal in their body was reviewed. The patient was then sedated. Once sedated and comfortable a rectal exam was done. External exam was normal. Internal exam revealed a normal sphincter tone and no palpable masses. The scope was then introduced and retrofelexed. No internal hemorrhoids were identified. The scope was then advanced to the cecum without difficulty. The TI and appendiceal orifice were identified. The prep was good. The scope was then slowly retracted over 10 minutes back into the rectum. He has a small 5 mm flat polyp. This is removed at 20 cm with a cold biting forcep. There are no polyps at 70 to 80 cm. He has a few very small very few diverticula in the sigmoid colon there is no signs of bleeding or infection. The scope was removed and the patient was woken up and taken back to Same day surgery in stable condition. The patient tolerated the procedure well and there were no immediate complications. Follow up: The patient should follow up in 1 years unless they develop changes in bowel habits or other new gastrointestinal complaints.
--- NOTE | 2020-12-01 11:18 | PDOC.DSDIS_ITS ---
Discharge Plan Disposition Patient Disposition: HOME Condition: Good Discharge Details Reason For Visit: colon scope Attending Provider: Amelia Walter Primary Care Provider: Jeffery Casiano Home Meds and New Rx's Prescriptions: Continued potassium chloride 20 mEq tablet extended release 20 meq PO DAILY RF: 0 omega-3 fatty acids [Fish Oil Concentrate] 1,000 mg capsule 1,000 mg PO DAILY RF: 0 cholecalciferol (vitamin D3) 25 mcg (1,000 unit) capsule 25 mcg PO DAILY RF: 0 metronidazole 0.75 % cream 1 applic topical DAILY RF: 0 clindamycin HCl 300 MG capsule 300 mg PO PRN RF: 0 amlodipine [Norvasc] 10 mg tablet 10 mg PO DAILY Qty: 90 RF: 3 tramadol 50 mg tablet 50 mg PO BID PRN (Reason: pain) Qty: 60 RF: 3 duloxetine 30 mg capsule,delayed release(DR/EC) 30 mg PO DAILY Qty: 90 RF: 5 clonazepam [Klonopin] 1 mg tablet 1 mg PO HS Qty: 90 RF: 3 acetaminophen 500 mg tablet 500 mg PO Q6H PRN (Reason: pain) Qty: 60 RF: 2 pantoprazole [Protonix] 40 mg tablet,delayed release (DR/EC) 40 mg PO DAILY Qty: 30 RF: 12 sucralfate [Carafate] 1 gram tablet 1 gm PO QACHS PRN (Reason: heartburn) Qty: 120 RF: 12 Discontinued polyethylene glycol 3350 17 gram/dose powder 238 g PO ONCE Qty: 238 RF: 0 bisacodyl [Dulcolax (bisacodyl)] 5 mg tablet,delayed release (DR/EC) 5 mg PO ONCE Qty: 4 RF: 0 Discharge Instructions Additional Instructions: DSU Colonoscopy Post- Op Instructions Instructions for Everyone who is given Anesthesia: For your safety, please do the following for the next twenty-four (24) hours: *Do Not operate a motor vehicle (car, truck, motorcycle, etc.) *Do Not drink alcoholic beverages or use any recreational drugs for the first 24 hours or while taking pain medications. The medications in your body may have a reaction that can be dangerous. *Do Not make any important decisions or sign any important papers. Findings: Very small polyp. No signs of recurrence at the previous polypectomy sites. I will send a letter in approximately 3 weeks with the findings on the pathology of the polyp. Follow up: Repeat colonoscopy in 1 years time 1. No lifting over 20 pounds or strenuous activity for the first 24 hours after your procedure. After 24 hours there are no restrictions on your activity but you may feel fatigued for a few days. 2. After you arrive home you may have a light meal and return to your normal diet as you can tolerate it without feeling sick to your stomach. 3. You may have a bloated, gaseous feeling in your belly (abdomen) after a colonoscopy. Passing gas and belching will help. Walking or lying down on your left side with your knees flexed may relieve the discomfort. Call the office at [phone] (Office) or [phone] (Hospital) right away if you notice any of the following: a.Vomiting of blood or ?coffee ground stools?. b.Rectal bleeding 1Tbsp, blood clots or continuous bleeding. c.Severe belly (abdominal) pain. d.A hard distended belly (abdomen) and an inability to pass gas. 4. Please don?t expect to have a normal BM (bowel movement) for 2-3 days after your procedure. 5. If there are questions regarding the findings of your procedure, please contact your doctor 6. If you are unable to contact your doctor with a problem, contact the hospital at [phone]. 7. Continue all your regular medications unless directed otherwise. I understand the above instructions and have no questions. Signature of Patient or Adult Escort Name of Responsible Adult Escort Signature of Nurse Date/Time Activity:: see above Diet:: see above Discharge Orders Discharge Orders: Discharge Order (Routine); Ordered 11/30/20 Ordered By: Amelia Walter DS: Diagnosis Discharge Diagnosis (1) Serrated adenoma of colon: Status: Acute (2) Tubulovillous adenoma polyp of colon: Status: Acute
[2020-12-01 11:33] VITALS: BP 126/82; PULSE 71; RESP 18; TEMP 36.4; O2SAT 97
[2020-12-01] MEDS: Lactated Ringers 1,000 ML 80 ML IV (11:55)
--- NOTE | 2020-12-01 11:59 | W.ANESPRE ---
General Info Date of Service Date Performed: 12/01/20 Height: 5 ft 10 in Weight: 98.7 kg Body Mass Index (BMI): 31.2 Surgical Procedure: Operation Date: 12/01/20 11:20 Proposed Procedures Side Surgeon sulaiman Walter, DO Meds Allergies and Home Medications Allergies Allergy/AdvReac Type Severity Reaction Status Date / Time Penicillins Allergy Severe HIVES Verified 12/01/20 11:28 Cephalosporins Allergy Intermediate Hives Verified 12/01/20 11:28 Sulfa (Sulfonamide Allergy Intermediate HIVES Verified 12/01/20 11:28 Antibiotics) rituximab AdvReac Intermediate EXTREMITY Verified 12/01/20 11:28 TREMORS FABBY Inhibitors AdvReac Unknown COUGH Verified 12/01/20 11:28 Home Medication Medication Instructions Recorded clindamycin HCl 300 mg PO PRN cap 03/05/16 acetaminophen 500 mg PO Q6H PRN #60 tab 05/18/19 pantoprazole [Protonix] 40 mg PO DAILY #30 tab 06/10/19 sucralfate [Carafate] 1 gm PO QACHS PRN #120 tab 06/10/19 amlodipine 10 mg tablet 10 mg PO DAILY #90 tab 12/17/19 cholecalciferol (vitamin D3) 25 25 mcg PO DAILY 03/17/20 mcg (1,000 unit) capsule omega-3 fatty acids 1,000 mg 1,000 mg PO DAILY 03/17/20 capsule potassium chloride 20 mEq 20 meq PO DAILY 03/17/20 tablet,extended release metronidazole 0.75 % topical cream 1 applic TOPICAL DAILY 07/26/20 tramadol 50 mg tablet 50 mg PO BID PRN #60 tab 08/07/20 duloxetine 30 mg capsule,delayed 30 mg PO DAILY #90 cap 08/10/20 release clonazepam 1 mg tablet 1 mg PO HS #90 tab 09/06/20 Current Visit Medications: Current Medications Generic Name Dose Route Start Last Admin Trade Name Freq PRN Reason Stop Dose Admin Hyoscyamine Sulfate 0.125 mg 11/30/20 14:25 Hyoscyamine 0.125 Mg Sl/Oral/Chew SL DIRECTED PRN Ringer's Solution 1,000 mls @ 80 mls/hr 12/01/20 06:00 12/01/20 11:55 IV 12/30/20 23:59 80 mls/hr INFUSION JIM Administration IV Miscellaneous Supplies 1 each 12/01/20 06:00 Iv Access IV 12/30/20 23:59 DIRECTED JIM Ondansetron HCl 4 mg 11/30/20 14:25 Ondansetron 4 Mg/2 Ml Vial IVP Q4H PRN PRN Nausea / Vomiting Sodium Chloride 0 ml 12/01/20 06:00 Normal Saline Flush 10 Ml Syr IV 12/30/20 23:59 PRN PRN Sodium Chloride 0 ml 12/01/20 06:00 Normal Saline 10 Ml Vial IJ 12/30/20 23:59 DIRECTED PRN Sterile Water 0 ml 12/01/20 06:00 Water,Injection,Sterile 10 Ml Vial IJ 12/30/20 23:59 DIRECTED PRN PFSH Active Problems Active Problems: Problem Status Onset Code Elevated prostate specific antigen (PSA) 09/04/12 R97.20 Essential hypertension 04/20/13 I10 Gastroesophageal reflux disease 09/04/12 K21.9 Hiatal hernia K44.9 Hyperlipidemia E78.5 Internal hemorrhoids K64.8 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 Sleep disturbance, unspecified 09/04/12 G47.9 Right rotator cuff tendonitis M75.81 Arthritis of wrist, 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 Trigger finger, right middle finger M65.331 Abdominal pain R10.9 Encounter for palliative care Z51.5 Colon polyp, hyperplastic ~03/2020 K63.5 DJD (degenerative joint disease) M19.90 Serrated adenoma of colon ~03/2020 D12.6 Tubulovillous adenoma polyp of colon ~03/2020 D12.6 Dysplastic colon polyp K63.5 Gastropathy K31.9 Duodenitis without hemorrhage K29.80 Esophagitis on biopsy K20.9 Dupuytren's contracture of right hand M72.0 Medical History Medical History Duodenitis without hemorrhage Dupuytren's contracture of right hand Dysplastic colon polyp Elevated PSA Esophagitis on biopsy Gastro-esophageal reflux Gastropathy Hiatal hernia Hyperlipidemia pt denies Hypertension Internal hemorrhoids Mantle cell lymphoma Serrated adenoma of colon (~03/2020) 03/23/20 Dr. Brittaney Walter, repeat colo 6 months Sleep disturbance Tubulovillous adenoma polyp of colon (~03/2020) 03/23/20 Dr. Brittaney Walter, repeat colo 6 months Surgical History Surgical History Colonoscopy - MAC (~08/16/19) 2013 History of colonoscopy History of hernia repair umibical History of total bilateral knee replacement (TKR) Tobacco Smoking/Tobacco Use Status: Former Tobacco Use Alcohol Alcohol Intake: current Alcohol intake frequency: a few times a month Alcohol type: beer Substance Use Substance use: Occasionally Substance use type: marijuana Details: T-6 WEEKS, Liquid oil (THC and CBD) Vital Signs and Lab Results Vital Signs Most Recent Vital Signs in EMR: Most Recent Vital Signs Temp Pulse Resp BP Pulse Ox 36.4 C L 71 18 126/82 97 12/01/20 11:33 12/01/20 11:33 12/01/20 11:33 12/01/20 11:33 12/01/20 11:33 Lab Results Blood Type / Crossmatch: No Data to Display Complete Blood Count: No Data to Display Complete Metabolic Panel: No Data to Display Liver Function Panel: No Data to Display Coagulation Panel: No Data to Display Cardiac Panel: No Data to Display Arterial Blood Gas: No Data to Display Venous Blood Gas: No Data to Display Pancreas Panel: No Data to Display Thyroid Panel: No Data to Display Infectious Disease: No Data to Display Blood Cultures: No Data to Display Toxicology Panel: No Data to Display Anesthesia Assessment and Plan Anesthesia History Personal History: No History of Anesthesia Complications Family History: No Family History of Anesthesia Complications Exercise Tolerance Exercise Tolerance: Metabolic Equivalents>4 Pertinent Negatives Pertinent Negatives: No Symptoms of GERD Cardiac & Pulmonary Exam Cardiac Exam: Normal S1/S2 Heart Sounds Pulmonary Exam: Clear Bilateral Breath Sounds Airway Exam Known Difficult Airway: No Mallampati Class: 1 Mouth Opening: Normal (> 3cm) Thyromental Distance: Greater than 3 cm Neck Range of Motion: Full ROM Neck Circumference: Normal Teeth Condition: Normal Dentition ASA Classification ASA Score: ASA 2 Emergency Case?: No NPO Status NPO Status: NPO Clears >2 hours, Solids >8 hours Anesthesia Plan Resuscitation Status: Full Code Anesthesia Technique: General Anesthesia Airway Planned: Natural Airway Monitors Used: Standard Monitors
[2020-12-01 12:01] VITALS: BMI 31.2
--- NOTE | 2020-12-01 12:30 | BOWEL_PTH ---
PATIENT: Idalia Estrada LOC: [facility] U#:[id number] AGE/SX: 70/M ROOM: RE12/01/[address]: Amelia Walter : 1950 BED: DIS: 12/01/2020 SPEC #: [id number] RECD: 12/01/20 12:50 STATUS: MITCHELL REQ #: [id number] NERISSA: 12/01/20 12:[address]: Amelia Walter DEPT: Surgical Specimen RECD BY: Melany Lorenzo ENTERED: 12/01/20 12:51 SP TYPE: Bowel OTHR DR: Jeffery Casiano DO Tissues: 1 - BIOPSY BOWEL Procedures: GROSS AND MICRO LEVEL 4 Comments: [id number]
[2020-12-01 12:38] VITALS: BP 108/71; PULSE 65; RESP 16; TEMP 36.7; O2SAT 91
[2020-12-01 13:05] VITALS: BP 133/79; PULSE 50; RESP 16; TEMP 36.3; O2SAT 97
--- NOTE | 2020-12-01 13:05 | ANES.POST_ITS ---
Postoperative Evaluation Date, Time and Location Date Performed: 12/01/20 Time Performed: 12:50 Patient Location: Day Surgery Unit Vital Signs Most Recent Imported Vital Signs: Most Recent Vital Signs Temp Pulse Resp BP Pulse Ox 36.7 C 65 16 108/71 91 L 12/01/20 12:38 12/01/20 12:38 12/01/20 12:38 12/01/20 12:38 12/01/20 12:38 Pain Score Most Recent Pain Score: Most Recent Pain Score Pain Level 0 12/01/20 12:38 Assessment Mental Status: Awake (Alert & Oriented to Patient Baseline) Airway and Respiratory Function: Patent airway with normal (patient baseline) respiratory exam Cardiovascular Function: Hemodynamically Stable Hydration Status: Adequately Hydrated Nausea & Vomiting: No Nausea or Vomiting Pain: Pt. Denies Any Pain Peripheral Nerve Block: Patient did not receive a nerve block Teaching Patient Teaching: Advised to seek followup for the following concerns (See exp lanation) (Transient episode of atrial fibrillation with rate 90-130 while under anesthesia.) Concerns: New Onset Atrial Fibrillation
== END 2020-12-01 13:35 | disposition home or self-care (01) ==
PROVIDERS: PCP Emergency Medicine; Visit Provider Surgery
PROC: 0DJD8ZZ Inspection of Lower Intestinal Tract, Via Natural or Artificial Opening Endoscopic (ICD-10-PCS; CPT 45378; principal; 2020-12-01 11:15)
DX: Z12.11 Encounter for screening for malignant neoplasm of colon (principal); K63.5 Polyp of colon; Z86.010 Personal history of colon polyps; I10 Essential (primary) hypertension; K21.9 Gastro-esophageal reflux disease without esophagitis
CPT/HCPCS: 45380; 88305

== ENCOUNTER 2020-12-26 07:04 | Outpatient (RCR) | payer MEDICARE, BC, SELFPAY ==
--- NOTE | 2020-12-26 11:00 | HOLTER_ITS ---
APPROVED REPORT Conclusion There is a 48-hour monitor ordered for indication palpitations. The patient was in normal sinus rhythm for majority of the recording with an average heart rate of 65 bpm. The patient had 0 episodes of ventricular tachycardia and rare (1%) PVCs. The patient no episodes of supraventricular tachycardia and rare PACs. There were no episodes of atrial fibrillation, no pauses greater than 3 seconds and no evidence of hi gh degree heart block There was 1 patient diary event described as pain in the right ribs that is constant. This occurre d at the time of 2 singular PVCs.
== END 2021-01-06 23:59 | disposition home or self-care (01) ==
LOC: RT 07:04
PROVIDERS: PCP Emergency Medicine; Visit Provider Emergency Medicine
DX: R00.2 Palpitations (principal); I49.3 Ventricular premature depolarization; I49.1 Atrial premature depolarization
CPT/HCPCS: 93227; 93225; 93226

== ENCOUNTER 2021-06-13 04:10 | Outpatient (CLI) | payer MEDICARE, BC, SELFPAY ==
[2021-06-13 23:18] LABS: PSA, Diagnostic 7.2 ng/mL (0.0-6.5)
== END 2021-06-13 04:11 | disposition home or self-care (01) ==
LOC: LBO 04:10
PROVIDERS: PCP Emergency Medicine; Visit Provider Urology
DX: R97.20 Elevated prostate specific antigen [PSA] (principal); N40.0 Benign prostatic hyperplasia without lower urinary tract symptoms
CPT/HCPCS: 84153

== ENCOUNTER → 2021-06-28 08:42 | Outpatient (BNVA) | payer MEDICARE, BC, SELFPAY | PROVIDERS: PCP Emergency Medicine; Referring Provider Family Medicine; Visit Provider Psychiatry & Neurology Neurology | DX: G62.9 Polyneuropathy, unspecified (principal); R73.9 Hyperglycemia, unspecified; R25.1 Tremor, unspecified; I10 Essential (primary) hypertension | CPT/HCPCS: 95909; 99214 ==

== ENCOUNTER → 2021-08-13 13:42 | Outpatient (BNVA) | payer MEDICARE, BC, SELFPAY | PROVIDERS: PCP Family Medicine; Referring Provider Family Medicine; Visit Provider Psychiatry & Neurology Neurology | DX: M79.641 Pain in right hand (principal); M79.642 Pain in left hand; G89.29 Other chronic pain; G62.9 Polyneuropathy, unspecified; R25.1 Tremor, unspecified | CPT/HCPCS: 99214 ==

== ENCOUNTER → 2022-01-07 11:23 | Outpatient (BNVA) | payer MEDICARE, BC, SELFPAY | PROVIDERS: PCP Family Medicine; Referring Provider Family Medicine; Visit Provider Surgery | DX: Z12.11 Encounter for screening for malignant neoplasm of colon (principal); C83.12 Mantle cell lymphoma, intrathoracic lymph nodes; K21.9 Gastro-esophageal reflux disease without esophagitis; G47.9 Sleep disorder, unspecified | CPT/HCPCS: 99213 ==

== ENCOUNTER → 2022-02-08 00:49 | Outpatient (CLI) | payer MEDICARE, BC, SELFPAY ==
--- NOTE | 2022-02-08 12:31 | DI.RAD_ITS ---
Exam(s) XR CHEST 2V PA LATERAL EXAM: XR CHEST 2V PA LATERAL CLINICAL HISTORY: SOB COVID Angela, lymphoma, gerd, sleep disturbance, C83.12, K21.9 G47.9 TECHNIQUE: 2D digital imaging was performed. COMPARISON: CR CHEST 2 VIEWS PA,LAT from 06/12/2015 FINDINGS: The heart is not enlarged. The lungs are clear and well expanded. No pleural effusion seen. Mediastin al contours appear intact. IMPRESSION: Normal chest. RADIATION DOSE DELIVERED: Total DLP
== END ==
PROVIDERS: PCP Family Medicine; Visit Provider Surgery
DX: R06.02 Shortness of breath (principal); C83.12 Mantle cell lymphoma, intrathoracic lymph nodes; Z86.16 Personal history of COVID-19
CPT/HCPCS: 71046

== ENCOUNTER → 2022-02-25 02:31 | Outpatient (CLI) | payer MEDICARE, BC, SELFPAY ==
--- NOTE | 2022-02-25 10:40 | DI.RAD_ITS ---
Exam(s) XR LUMBAR SPINE COMPLETE EXAM: XR LUMBAR SPINE COMPLETE CLINICAL HISTORY: rt low back pain, m54.50. TECHNIQUE: 2D digital imaging was performed. Five views. COMPARISON: CT CHEST ABD PELVIS WITH CONTRAST from 03/21/2015 CR XR CHEST 2V PA LATERAL from 02/08/2022 FINDINGS: There are 4 lumbar type vertebral bodies with sacralization of L5. There is no compression fracture. There is severe narrowing of the L 2 3, L3-4 and L4-5 disc spaces. There are prominent endplate os teophytes on the right side at L2-3 and L3-4. Facet degenerative changes are noted at the same level s. There is no spondylolysis or spondylolisthesis. IMPRESSION: Advanced degenerative changes. DATA REPOSITORY: RADIATION DOSE DELIVERED:
--- NOTE | 2022-02-25 10:52 | DI.RAD_ITS ---
Exam(s) XR HIP RT COMPLETE AP PELVIS EXAM: XR HIP RT COMPLETE AP PELVIS INDICATION: r hip pain,m25.551. COMPARISON: No exams were available for comparison TECHNIQUE: 2D digital imaging was performed. Two views. FINDINGS: The hip joint spaces are well maintained. There is minimal acetabular spurring. SI joints show mild spurring. There is narrowing of the L5-S1 disc space. IMPRESSION: Minimal degenerative changes of the hips. DATA REPOSITORY: RADIATION DOSE DELIVERED:
== END ==
PROVIDERS: PCP Family Medicine; Visit Provider Family Medicine
DX: M48.07 Spinal stenosis, lumbosacral region (principal); M25.551 Pain in right hip
CPT/HCPCS: 72110; 73502

== ENCOUNTER → 2022-03-08 11:03 | Outpatient (BNVA) | payer MEDICARE, BC, SELFPAY | PROVIDERS: PCP Family Medicine; Referring Provider Family Medicine; Visit Provider Student in an Organized Health Care Education/Training Program | DX: M65.341 Trigger finger, right ring finger (principal) | CPT/HCPCS: 20550; J1030 ==

== ENCOUNTER → 2022-04-01 09:46 | Outpatient (BNVA) | payer MEDICARE, BC, SELFPAY | PROVIDERS: PCP Family Medicine; Referring Provider Family Medicine; Visit Provider Surgery | DX: Z01.818 Encounter for other preprocedural examination (principal); D12.6 Benign neoplasm of colon, unspecified; K21.9 Gastro-esophageal reflux disease without esophagitis; K44.9 Diaphragmatic hernia without obstruction or gangrene; E11.49 Type 2 diabetes mellitus with other diabetic neurological complication | CPT/HCPCS: 99213 ==

== ENCOUNTER → 2022-04-02 12:59 | Outpatient (CLI) | payer MEDICARE, BC, SELFPAY ==
--- NOTE | 2022-04-02 13:03 | DI.RAD_ITS ---
Exam(s) XR CHEST 2V PA LATERAL EXAM: XR CHEST 2V PA LATERAL CLINICAL HISTORY: post COVID-pneumonia/sob,r06.02,U07.1,j12.82,pneumonia due to covid. TECHNIQUE: 2D digital imaging was performed. COMPARISON: CR XR CHEST 2V PA LATERAL from 02/08/2022 FINDINGS: 2 views: Heart size is normal. The mediastinum is not widened. Lungs are clear. No infiltrates nor pleural effusions. IMPRESSION: No acute pulmonary findings. DATA REPOSITORY: RADIATION DOSE DELIVERED:
== END ==
PROVIDERS: PCP Family Medicine; Visit Provider Surgery
DX: D12.6 Benign neoplasm of colon, unspecified (principal); E11.49 Type 2 diabetes mellitus with other diabetic neurological complication; I10 Essential (primary) hypertension; J12.82 Pneumonia due to coronavirus disease 2019; K21.9 Gastro-esophageal reflux disease without esophagitis; R06.02 Shortness of breath; U07.1 COVID-19; Z86.16 Personal history of COVID-19
CPT/HCPCS: 71046

== ENCOUNTER 2022-04-09 08:30 | Day surgery (SDC) | payer MEDICARE, BC, SELFPAY ==
--- NOTE | 2022-04-09 06:46 | COLE_ITS ---
Date of service: 04/09/22 Time of Service: : Colonoscopy Report Date of procedure: 04/09/22 Pre-op diagnosis general: Colon Cancer Screening/ colon polyps Post-op diagnosis procedure note: other (polyps) Procedure: Colonoscopy with polypectomy Surgeon: Bushra Kaur Anesthesia Type: General:No Airway Estimated blood loss (mL): 5 Pathology: other (ascending polyp, transverse polyp x2, Descending x2, sigmoid polyps x4 and rectal polyp x4) Complications: None Disposition: same day Indications: His original colonoscopy did show a polyp with cancer in it but the stalk was negative.? Subsequent colonoscopy showed villous and serrated adenomas.? The last colonoscopy in only had a hyperplastic polyp. Pt here to discuss Colonoscopy, he had COVID in December, now feeling better, chest xray per patient was good Pt has? had a colon cancer screening before.? Denies problems with constipation, diarrhea.? No pain or difficulty with bowel movements.? Denies rectal bleeding.? There is family history of any colon cancer.? Pt has not had any weight loss.? With his episodes of COVID he has had weight gain.? Their appetite is good.? No heart, lung, or kidney problems. No heartburn or indigestion.? He does have a history of a hiatal hernia and GERD.? He has been very good about following I and avoiding trigger foods for reflux.? He is on Prevacid daily and has Carafate for breakthrough signs and symptoms.? He has not had problems with heartburn or indigestion lately.? No prior colo-rectal surgery.? No prior prostate surgery.? No problems with anesthesia in the past. Prep: Miralax/Dulcolax Procedure Start Time: Procedure End Time: 10:15 Retraction Time: 28 minutes Findings: multiple small polyps throughout the colon Procedure Description: After informed consent was obtained the patient was taken to the procedure room and placed in a left decubitous position. Monitors were applied and a time out was done. The patients name, date of , procedure, allergies to medica tions and metal in their body was reviewed. The patient was then sedated. Once sedated and comfortable a rectal exam was done. External exam was normal. Internal exam revealed a normal sphincter tone and no palpable masses. The prostate felt enlarged but smooth. The scope was then introduced and retro-flexed. No internal hemorrhoids, polyps or masses were identified on retro-flexion. The scope was then advanced to the cecum without difficulty. The ileocecal vlave and appendiceal orifice were identified. The prep was good. The scope was then slowly retracted over 28 minutes back into the rectum. Polyps were removed with cold forceps in the ascending colon, transverse colon x2, descending colon x2, sigmoid colon x4 and rectum x4. There was no diverticulosis noted. The scope was removed and the patient was woken up and taken back to Same day surgery in stable condition. The patient tolerated the procedure well and there were no immediate complications. Follow up: The patient should follow up in 3-5 years unless they develop changes in bowel habits or other new gastrointestinal complaints.
--- NOTE | 2022-04-09 06:47 | W.PM.DSUDISC ---
Date of service: 04/09/22 Time of Service: 10:21 Discharge Plan Disposition Patient Disposition: HOME Condition: Good Discharge Details Reason For Visit: colonoscopy Attending Provider: Bushra Kaur Primary Care Provider: Seble Porter Home Meds and New Rx's Prescriptions: Continued potassium chloride 20 mEq tablet extended release 20 meq PO DAILY omega-3 fatty acids [Fish Oil Concentrate] 1,000 mg capsule 1,000 mg PO DAILY cholecalciferol (vitamin D3) 25 mcg (1,000 unit) capsule 25 mcg PO DAILY duloxetine 60 mg capsule,delayed release(DR/EC) 60 mg PO DAILY Qty: 90 5RF gabapentin 300 mg capsule 300 mg PO TID Qty: 90 5RF ivermectin 1 % cream 1 applic topical DAILY Qty: 45 5RF Rx Instructions: For rosacea sildenafil 100 mg tablet 100 mg PO DAILY PRN (Reason: sexual activity) clindamycin HCl 300 MG capsule 300 mg PO PRN Label Comments: 03/05/16 prior dental procedures. md amlodipine [Norvasc] 10 mg tablet 10 mg PO DAILY Qty: 90 3RF clonazepam [Klonopin] 1 mg tablet 1 mg PO HS Qty: 60 0RF tramadol 50 mg tablet 50 mg PO BID PRN (Reason: pain) Qty: 180 3RF lansoprazole 30 mg capsule,delayed release(DR/EC) 30 mg PO DAILY Qty: 90 4RF acetaminophen 500 mg tablet 500 mg PO Q6H PRN (Reason: pain) Qty: 60 2RF sucralfate [Carafate] 1 gram tablet 1 gm PO QACHS PRN (Reason: heartburn) Qty: 120 12RF Discontinued polyethylene glycol 3350 17 gram/dose powder 238 g PO ONCE Qty: 238 0RF Rx Instructions: take per colonoscopy instructions bisacodyl [Dulcolax (bisacodyl)] 5 mg tablet,delayed release (DR/EC) 5 mg PO ONCE Qty: 4 0RF Rx Instructions: Take according to provider's instructions for colonoscopy prep. Discharge Instructions Additional Instructions: Findings: 13 polyps Follow up: 3-5 years Please call if you develop: fevers >101.5 Nausea or Vomiting Abdominal pain that is not transient Rectal bleeding that is more then a tbsp A hard abdomen and inability to pass gas DAY SURGERY UNIT POST ENDOSCOPY INSTRUCTIONS Instructions for everyone who is given Anesthesia: For your safety, please do the following for the next 24 Hours: a. Do not drive or operate dangerous equipment b. Do not drink alcohol beverages or use any recreational drugs for the first 24 hours or while taking pain medications. The medications in your body may have a reaction that can be dangerous. c. Do not make any important decisions or sign any important papers 1. Generally there are no restrictions on your activity after a day or so has gone by, but you may feel a bit fatigued for a few days. 2. After you arrive home you may have a light meal and return to a normal diet as you can tolerate it without feeling sick to your stomach. 3. After surgery, you may feel pain or discomfort. This should be only transient, but if it persists please contact your doctor. 4. If there are any questions regarding the findings of your procedure, please feel free to contact your doctor. 6. If you are unable to contact your doctor with a problem, contact the hospital at [phone]. 7. Continue all your regular medications unless directed otherwise. I understand the above instructions and have no questions. Signature of Patient or Responsible Adult Escort Date/Time Name of Responsible Adult Escort Signature of Nurse Date/Time Activity:: Activity as Tolerated Diet:: As Tolerated Discharge Orders Discharge Orders: Discharge Order (Routine); Ordered 04/09/22 Ordered By: Bushra Kaur
[2022-04-09 08:49] VITALS: BP 121/84; PULSE 76; RESP 16; TEMP 36.5; O2SAT 97
--- NOTE | 2022-04-09 09:14 | ANES.PREOP_ITS ---
General Info Date of Service Date Performed: 04/09/22 Height: 5 ft 10 in Weight: 101.4 kg Body Mass Index (BMI): 32.1 Surgical Procedure: Operation Date: 04/09/22 09:50 Proposed Procedure Side Surgeon sulaiman Kaur MD Meds Allergies and Home Medications Allergies Allergy/AdvReac Type Severity Reaction Status Date / Time Penicillins Allergy Severe HIVES Verified 04/09/22 09:06 Cephalosporins Allergy Intermediate Hives Verified 04/09/22 09:06 Sulfa (Sulfonamide Allergy Intermediate HIVES Verified 04/09/22 09:06 Antibiotics) rituximab AdvReac Intermediate EXTREMITY Verified 04/09/22 09:06 TREMORS FABBY Inhibitors AdvReac Unknown COUGH Verified 04/09/22 09:06 Home Medication Medication Instructions Recorded clindamycin HCl 300 mg capsule 300 mg PO PRN 03/05/16 acetaminophen 500 mg tablet 500 mg PO Q6H PRN pain #60 tabs 05/18/19 sucralfate 1 gram tablet (Carafate) 1 gm PO QACHS PRN heartburn #120 06/10/19 tabs cholecalciferol (vitamin D3) 25 25 mcg PO DAILY 03/17/20 mcg (1,000 unit) capsule omega-3 fatty acids 1,000 mg 1,000 mg PO DAILY 03/17/20 capsule (Fish Oil Concentrate) potassium chloride 20 mEq 20 meq PO DAILY 03/17/20 tablet,extended release amlodipine 10 mg tablet (Norvasc) 10 mg PO DAILY #90 tabs 10/25/21 duloxetine 60 mg capsule,delayed 60 mg PO DAILY #90 caps 11/14/21 release bisacodyl 5 mg tablet,delayed 5 mg PO ONCE #4 tabs 01/07/22 release (Dulcolax (bisacodyl)) sildenafil 100 mg tablet 100 mg PO DAILY PRN sexual activity 02/08/22 clonazepam 1 mg tablet (Klonopin) 1 mg PO HS #60 tabs 02/15/22 gabapentin 300 mg capsule 300 mg PO TID #90 caps 02/20/22 ivermectin 1 % topical cream 1 applic topical DAILY #45 grams 02/20/22 tramadol 50 mg tablet 50 mg PO BID PRN pain #180 tabs 03/04/22 lansoprazole 30 mg capsule,delayed 30 mg PO DAILY #90 caps 03/12/22 release polyethylene glycol 3350 17 238 g PO ONCE colonoscopy prep 04/01/22 gram/dose oral powder #238 grams Current Visit Medications: Current Medications Generic Name Dose Route Start Last Admin Trade Name Elizabeth PRN Reason Stop Dose Admin Hyoscyamine Sulfate 0.125 mg 04/09/22 06:47 Hyoscyamine 0.125 Mg Sl/Oral/Chew SL DIRECTED PRN Ringer's Solution 1,000 mls @ 80 mls/hr 04/09/22 06:00 IV 04/09/22 23:59 [facility] IV Miscellaneous Supplies 1 each 04/09/22 06:00 Iv Access IV 04/09/22 23:59 DIRECTED JIM Ondansetron HCl 4 mg 04/09/22 06:47 Ondansetron 4 Mg/2 Ml Vial IVP Q4H PRN PRN Nausea / Vomiting Sodium Chloride 0 ml 04/09/22 06:00 Normal Saline Flush 10 Ml Syr IV 04/09/22 23:59 PRN PRN Sodium Chloride 0 ml 04/09/22 06:00 Normal Saline 10 Ml Vial IJ 04/09/22 23:59 DIRECTED PRN Sterile Water 0 ml 04/09/22 06:00 Water,Injection,Sterile 10 Ml Vial IJ 04/09/22 23:59 DIRECTED PRN PFSH Active Problems Active Problems: Problem Status Onset Code Hx of lymphoma Z85.72 Rosacea L71.9 Trigger finger (acquired) M65.30 Hip pain, right M25.551 Low back pain M54.50 Essential hypertension 04/20/13 I10 Gastroesophageal reflux disease 09/04/12 K21.9 Hyperlipidemia E78.5 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 Sleep disturbance, unspecified 09/04/12 G47.9 Dupuytren's contracture of right hand M72.0 Tubulovillous adenoma polyp of colon ~03/2020 D12.6 Serrated adenoma of colon ~03/2020 D12.6 Encounter for palliative care Z51.5 DJD (degenerative joint disease) M19.90 Bilateral hand pain M79.641, M79.642 Hand muscle weakness M62.81 Peripheral neuropathy G62.9 Essential tremor G25.0 Type 2 diabetes mellitus with neurologic complication, 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 Brittaney Walter, repeat colo 6 months Duodenitis without hemorrhage Dysplastic colon polyp Elevated prostate specific antigen (PSA) (09/04/12) multiple neg biopsies Elevated PSA Esophagitis on biopsy Gastropathy Hiatal hernia 04/24/15; [facility] [place] Internal hemorrhoids 04/24/15; [facility] [place] Right rotator cuff tendonitis Injection: 03/06/18 Trigger finger, right middle finger Surgical History Surgical History Colonoscopy - MAC (~11/2020) 2013 History of colonoscopy History of hernia repair umibical History of total bilateral knee replacement (TKR) Tobacco Smoking/Tobacco Use Status: Former Tobacco Use Alcohol Alcohol Intake: current Alcohol intake frequency: a few times a month Alcohol type: beer Substance Use Substance use: Occasionally Substance use type: marijuana Details: T-6 WEEKS, Liquid oil (THC and CBD) Vital Signs and Lab Results Vital Signs Most Recent Vital Signs in EMR: Most Recent Vital Signs Temp Pulse Resp BP Pulse Ox 36.5 C 76 16 121/84 97 04/09/22 08:49 04/09/22 08:49 04/09/22 08:49 04/09/22 08:49 04/09/22 08:49 Lab Results Blood Type / Crossmatch: No Data to Display Complete Blood Count: No Data to Display Complete Metabolic Panel: No Data to Display Liver Function Panel: No Data to Display Coagulation Panel: No Data to Display Cardiac Panel: No Data to Display Arterial Blood Gas: No Data to Display Venous Blood Gas: No Data to Display Pancreas Panel: No Data to Display Thyroid Panel: No Data to Display Infectious Disease: No Data to Display Blood Cultures: No Data to Display Toxicology Panel: No Data to Display Anesthesia Assessment and Plan Anesthesia History Personal History: No History of Anesthesia Complications Family History: No Family History of Anesthesia Complications Exercise Tolerance Exercise Tolerance: Metabolic Equivalents>4 Pertinent Negatives Pertinent Negatives: No Major Cardiovascular Symptoms or Complaints, No Major Pulmonary Symptoms or Complaints and No History of CVA/TIA Cardiac & Pulmonary Exam Cardiac Exam: Normal S1/S2 Heart Sounds Pulmonary Exam: Clear Bilateral Breath Sounds Implantable Cardiac Device Does patient have a Pacemaker or an ICD?: No Airway Exam Known Difficult Airway: No Mallampati Class: 1 Mouth Opening: Normal (> 3cm) Thyromental Distance: Greater than 3 cm Neck Range of Motion: Full ROM Neck Circumference: Normal Teeth Condition: Normal Dentition ASA Classification ASA Score: ASA 2 Emergency Case?: No NPO Status NPO Status: NPO Clears >2 hours, Solids >8 hours Anesthesia Plan Resuscitation Status: Full Code Anesthesia Technique: General Anesthesia Airway Planned: Natural Airway Monitors Used: Standard Monitors
[2022-04-09] MEDS: Lactated Ringers 1,000 ML 80 ML IV (09:26)
[2022-04-09 09:46] VITALS: BMI 32.1
--- NOTE | 2022-04-09 09:50 | BOWEL_PTH ---
PATIENT: Idalia Estrada LOC: [facility] U#:[id number] AGE/SX: 71/M ROOM: RE04/09/[address]: Bushra Kaur MD : [id number] BED: DIS: 04/09/2022 SPEC #: [id number] RECD: 04/09/22 12:36 STATUS: MITCHELL RE #: [id number] NERISSA: 04/09/22 09:[address]: Bushra Kaur DEPT: Surgical Specimen RECD BY: Melany Lorenzo ENTERED: 04/09/22 12:38 SP TYPE: Bowel OTHR DR: Seble Porter MD, DC Tissues: 1 - BIOPSY BOWEL 2 - BIOPSY BOWEL 3 - BIOPSY BOWEL 4 - BIOPSY BOWEL 5 - BIOPSY BOWEL Procedures: GROSS AND MICRO LEVEL 4 Comments: [id number]
[2022-04-09 10:20] VITALS: BP 118/80; PULSE 59; RESP 16; TEMP 36; O2SAT 96
[2022-04-09 10:51] VITALS: BP 138/88; PULSE 62; RESP 16; TEMP 36.2; O2SAT 96
--- NOTE | 2022-04-09 13:19 | W.ANESPOSTOP ---
Postoperative Evaluation Date, Time and Location Date Performed: 04/09/22 Time Performed: 13:19 Patient Location: Day Surgery Unit Vital Signs Most Recent Imported Vital Signs: Most Recent Vital Signs Temp Pulse Resp BP Pulse Ox 36.2 C L 62 16 138/88 96 04/09/22 10:51 04/09/22 10:51 04/09/22 10:51 04/09/22 10:51 04/09/22 10:51 Pain Score Most Recent Pain Score: Most Recent Pain Score Pain Level 0 04/09/22 10:51 Assessment Mental Status: Awake (Alert & Oriented to Patient Baseline) Airway and Respiratory Function: Patent airway with normal (patient baseline) respiratory exam Cardiovascular Function: Hemodynamically Stable Hydration Status: Adequately Hydrated Nausea & Vomiting: No Nausea or Vomiting Pain: Pt. Denies Any Pain Peripheral Nerve Block: Patient did not receive a nerve block Postoperative Comments:: Seen earlier today. Cleared to be discharged.
== END 2022-04-09 11:35 | disposition home or self-care (01) ==
PROVIDERS: PCP Family Medicine; Visit Provider Surgery
PROC: 0DJD8ZZ Inspection of Lower Intestinal Tract, Via Natural or Artificial Opening Endoscopic (ICD-10-PCS; CPT 45378; principal; 2022-04-09 09:45)
DX: Z12.11 Encounter for screening for malignant neoplasm of colon (principal); K63.5 Polyp of colon; K62.1 Rectal polyp; Z86.010 Personal history of colon polyps
CPT/HCPCS: 45380; 88305

== ENCOUNTER 2022-04-11 10:56 | Outpatient (CLI) | payer MEDICARE, BC, SELFPAY ==
[2022-04-11 13:10] LABS: ALT 22 U/L (16-63); AST 21 U/L (15-37); Albumin 3.7 g/dL (3.4-5.0); Alkaline Phosphatase 65 U/L (46-116); Anion Gap 10.4 mmol/L (3-11); BUN 22 mg/dL (7-18); Bilirubin, Total 0.6 mg/dL (0.2-1.0); CO2 27.6 mmol/L (21.0-32.0); CREATININE 1.2 mg/dL (0.70-1.30); Calcium 9.4 mg/dL (8.5-10.1); Chloride 106 mmol/L (98-107); Estimated GFR 63.85 (mL/min/1.73m2); Glucose 123 mg/dL (74-106); Potassium 3.5 mmol/L (3.5-5.1); Sodium 144 mmol/L (136-145); TSH (W/Ref FT4) 1.12 uIU/mL (0.36-3.74); Total Protein 7.7 g/dL (6.4-8.2); Vitamin B12 776 pg/mL (193-986)
== END 2022-04-11 10:57 | disposition home or self-care (01) ==
LOC: LOS 10:57
PROVIDERS: PCP Family Medicine; Visit Provider Family Medicine
DX: E11.9 Type 2 diabetes mellitus without complications (principal); G62.9 Polyneuropathy, unspecified; I10 Essential (primary) hypertension
CPT/HCPCS: 36415; 80053; 82607; 83036; 84443

== ENCOUNTER 2022-07-18 01:53 | Outpatient (CLI) | payer MEDICARE, BC, SELFPAY ==
[2022-07-22 11:44] LABS: Free PSA/PSA Ratio 0.23 ratio
== END 2022-07-18 01:54 | disposition home or self-care (01) ==
PROVIDERS: PCP Family Medicine; Visit Provider Urology
DX: R97.20 Elevated prostate specific antigen [PSA] (principal)
CPT/HCPCS: 36415; 84154

== ENCOUNTER 2023-01-08 03:50 | Outpatient (CLI) | payer MEDICARE, BC, SELFPAY ==
[2023-01-08 11:08] LABS: Hemoglobin A1C 9.1 % (<5.7)
[2023-01-08 11:09] LABS: ALT 30 U/L (16-63); AST 25 U/L (15-37); Albumin 3.3 g/dL (3.4-5.0); Alkaline Phosphatase 67 U/L (46-116); BUN 19 mg/dL (7-18); Bilirubin, Total 0.7 mg/dL (0.2-1.0); CREATININE 1.3 mg/dL (0.70-1.30); Calcium 8.8 mg/dL (8.5-10.1); Chloride 102 mmol/L (98-107); Estimated GFR 57.65 (mL/min/1.73m2); Glucose 306 mg/dL (74-106); Potassium 3.8 mmol/L (3.5-5.1); Sodium 139 mmol/L (136-145); Total Protein 7.3 g/dL (6.4-8.2)
== END 2023-01-08 03:51 | disposition home or self-care (01) ==
PROVIDERS: PCP Family Medicine; Visit Provider Family Medicine
DX: E11.9 Type 2 diabetes mellitus without complications (principal); N28.89 Other specified disorders of kidney and ureter
CPT/HCPCS: 36415; 80053; 87077; 83036; 87086; 87186

== ENCOUNTER 2023-01-22 02:53 | Outpatient (CLI) | payer MEDICARE, BC, SELFPAY ==
[2023-01-22 19:13] LABS: PSA, Diagnostic 8.9 ng/mL (<=6.5)
== END 2023-01-22 02:54 | disposition home or self-care (01) ==
LOC: LOS 02:53
PROVIDERS: PCP Family Medicine; Visit Provider Urology
DX: R97.20 Elevated prostate specific antigen [PSA] (principal)
CPT/HCPCS: 36415; 84153; 84154

== ENCOUNTER 2023-02-21 03:47 | Outpatient (CLI) | payer MEDICARE, BC, SELFPAY ==
[2023-02-21 11:53] LABS: Hemoglobin A1C 7.2 % (<5.7)
== END 2023-02-21 03:48 | disposition home or self-care (01) ==
LOC: LBO 03:47
PROVIDERS: PCP Family Medicine; Visit Provider Family Medicine
DX: E11.9 Type 2 diabetes mellitus without complications (principal); N28.89 Other specified disorders of kidney and ureter
CPT/HCPCS: 36415; 86850; 86900; 86901; 83036; 87086

== ENCOUNTER 2023-05-23 01:14 | Outpatient (CLI) | payer MEDICARE, BC, SELFPAY ==
[2023-05-23 12:59] LABS: COMMENT (LAB VIEW ONLY) 93.03 mg/dL; Microalb ug/mg Crea 20.3 ug/mg Cr
[2023-05-23 13:33] LABS: ALT 20 U/L (16-63); AST 17 U/L (15-37); Albumin 3.7 g/dL (3.4-5.0); Alkaline Phosphatase 70 U/L (46-116); Anion Gap 9.3 mmol/L (3-11); BUN 45 mg/dL (7-18); Bilirubin, Total 0.4 mg/dL (0.2-1.0); CO2 24.7 mmol/L (21.0-32.0); CREATININE 2.3 mg/dL (0.70-1.30); Calcium 9.9 mg/dL (8.5-10.1); Chloride 105 mmol/L (98-107); Estimated GFR 29.07 (mL/min/1.73m2); Glucose 192 mg/dL (74-106); Potassium 4.3 mmol/L (3.5-5.1); Sodium 139 mmol/L (136-145); Total Protein 8.3 g/dL (6.4-8.2)
[2023-05-23 14:31] LABS: Hemoglobin A1C 5.9 % (<5.7)
== END 2023-05-23 01:15 | disposition home or self-care (01) ==
LOC: LOS 01:15
PROVIDERS: PCP Family Medicine; Visit Provider Family Medicine
DX: E11.9 Type 2 diabetes mellitus without complications (principal); I10 Essential (primary) hypertension
CPT/HCPCS: 36415; 80053; 82043; 82570; 83036

== ENCOUNTER 2023-05-27 09:55 | Outpatient (CLI) | payer MEDICARE, BC, SELFPAY ==
[2023-05-27 09:38] LABS: Abs Immature Grans 0.03 10^3/uL (0.0-0.06); Absolute Basophil Count 0.04 10^3/uL (0.0-0.2); Absolute Eosinophil Count 0.21 10^3/uL (0.0-0.7); Absolute Lymphocyte Count 1.71 10^3/uL (1.2-3.4); Absolute Monocyte Count 0.64 10^3/uL (0.1-0.8); Absolute Neutrophil Count 3.69 10^3/uL (1.2-6.7); Basophils % 0.6; Eosinophils % 3.3; HGB 13.6 g/dL (13.5-17.5); Immature Grans % 0.5; Lymphocytes % 27.1; MCH 29.9 pg (27.0-33.0); MCHC 32.4 % (32.0-36.0); MCV 92 fL (80-95); MPV 8.7 fL (8.0-11.0); Monocytes % 10.1; Neutrophils % 58.4; Platelet Count 201 10^3/uL (130-400); RBC 4.55 10^6/uL (4.36-5.78); RDW 13.8 % (11.8-14.1); RDW-SD 46.9 fL; WBC 6.32 10^3/uL (4.4-10.8)
[2023-05-27 10:02] LABS: ALT 19 U/L (16-63); AST 16 U/L (15-37); Albumin 3.6 g/dL (3.4-5.0); Alkaline Phosphatase 63 U/L (46-116); Anion Gap 9.6 mmol/L (3-11); BUN 43 mg/dL (7-18); Bilirubin, Total 0.4 mg/dL (0.2-1.0); CO2 24.4 mmol/L (21.0-32.0); CREATININE 2.4 mg/dL (0.70-1.30); Calcium 9.8 mg/dL (8.5-10.1); Chloride 104 mmol/L (98-107); Estimated GFR 27.62 (mL/min/1.73m2); FREE T4 0.67 ng/dL (0.76-1.46); Glucose 174 mg/dL (74-106); Potassium 4.5 mmol/L (3.5-5.1); Sodium 138 mmol/L (136-145); TSH 1.93 uIU/mL (0.36-3.74); Total Protein 7.9 g/dL (6.4-8.2)
== END 2023-05-27 09:56 | disposition home or self-care (01) ==
LOC: LBO 09:58
PROVIDERS: PCP Family Medicine; Visit Provider Internal Medicine
DX: C64.1 Malignant neoplasm of right kidney, except renal pelvis (principal); R94.6 Abnormal results of thyroid function studies
CPT/HCPCS: 36415; 80053; 84439; 84443; 85025

== ENCOUNTER 2023-07-02 02:48 | Outpatient (CLI) | payer MEDICARE, BC, SELFPAY ==
[2023-07-02 13:05] LABS: Anion Gap 11.1 mmol/L (3-11); BUN 33 mg/dL (7-18); CO2 23.9 mmol/L (21.0-32.0); CREATININE 2.3 mg/dL (0.70-1.30); Calcium 9.5 mg/dL (8.5-10.1); Chloride 106 mmol/L (98-107); Estimated GFR 29.07 (mL/min/1.73m2); Glucose 100 mg/dL (74-106); Potassium 4.8 mmol/L (3.5-5.1); Sodium 141 mmol/L (136-145)
== END 2023-07-02 02:49 | disposition home or self-care (01) ==
LOC: LOS 02:48
PROVIDERS: PCP Family Medicine; Visit Provider Family Medicine
DX: C64.9 Malignant neoplasm of unspecified kidney, except renal pelvis (principal); R79.89 Other specified abnormal findings of blood chemistry
CPT/HCPCS: 36415; 80048

== ENCOUNTER 2023-11-25 05:03 | Outpatient (CLI) | payer MEDICARE, BC, SELFPAY ==
[2023-11-25 12:35] LABS: ALT 23 U/L (16-63); AST 18 U/L (15-37); Albumin 3.8 g/dL (3.4-5.0); Alkaline Phosphatase 53 U/L (46-116); Anion Gap 12.9 mmol/L (3-11); BUN 46 mg/dL (7-18); Bilirubin, Total 0.4 mg/dL (0.2-1.0); CO2 20.1 mmol/L (21.0-32.0); CREATININE 2.6 mg/dL (0.70-1.30); Calcium 9.4 mg/dL (8.5-10.1); Chloride 106 mmol/L (98-107); Estimated GFR 24.94 (mL/min/1.73m2); Glucose 158 mg/dL (74-106); Potassium 4.7 mmol/L (3.5-5.1); Sodium 139 mmol/L (136-145); Total Protein 7.6 g/dL (6.4-8.2)
== END 2023-11-25 05:04 | disposition home or self-care (01) ==
LOC: LOS 05:03
PROVIDERS: PCP Family Medicine; Visit Provider Family Medicine
DX: E11.9 Type 2 diabetes mellitus without complications (principal); I10 Essential (primary) hypertension
CPT/HCPCS: 36415; 80053; 83036

== ENCOUNTER → 2023-12-01 11:27 | Outpatient (BNVA) | payer MEDICARE, BC, SELFPAY | PROVIDERS: PCP Family Medicine; Referring Provider Family Medicine; Visit Provider Surgery | DX: Z12.11 Encounter for screening for malignant neoplasm of colon (principal) | CPT/HCPCS: 99214 ==

== ENCOUNTER 2024-01-02 16:19 | Outpatient (CLI) | payer MEDICARE, BC, SELFPAY | END 2024-01-02 16:20 | disposition home or self-care (01) | LOC: LBO 16:20 | PROVIDERS: PCP Family Medicine; Visit Provider Urology | DX: R97.20 Elevated prostate specific antigen [PSA] (principal) | CPT/HCPCS: 36415; 84154 ==

== ENCOUNTER → 2024-02-12 10:45 | Outpatient (BNVA) | payer MEDICARE, BC, SELFPAY | PROVIDERS: PCP Family Medicine; Referring Provider Family Medicine; Visit Provider Psychiatry & Neurology Neurology | DX: R41.3 Other amnesia (principal); H53.9 Unspecified visual disturbance; G25.0 Essential tremor; G62.9 Polyneuropathy, unspecified | CPT/HCPCS: 99215; G2212 ==

== ENCOUNTER 2024-03-08 02:34 | Outpatient (CLI) | payer MEDICARE, BC, SELFPAY ==
--- NOTE | 2024-03-08 07:00 | DI.MRI_ITS ---
Exam(s) MR BRAIN WO EXAM: MR BRAIN WO CLINICAL HISTORY: memory changes,episode of transient blurred vision,r41.3,h53.9. TECHNIQUE: Multiplanar multisequence MRI of the brain was performed. CONTRAST MATERIAL: Noncontrast. COMPARISON: No exams were available for comparison FINDINGS: VENTRICLES AND EXTRA AXIAL SPACES: Normal in size and morphology for the patient's age. HEMORRHAGE: None. CEREBRAL PARENCHYMA: No focus of restricted diffusion to suggest acute infarct. No space-occupying le jessica identified. Tpzm-fw-daxndswa atrophy. Mild white matter changes of small vessel disease. MIDLINE SHIFT: None. BRAINSTEM/CEREBELLUM: Normal. CALVARIUM: Normal. VISUALIZED PARANASAL SINUSES/MASTOIDS: Clear. Orbits: Unremarkable. Pituitary: Normal. Vasculature: Normal flow voids. IMPRESSION: No acute abnormality. DATA REPOSITORY:
== END 2024-03-08 02:54 ==
LOC: DI 02:34
PROVIDERS: PCP Family Medicine; Visit Provider Psychiatry & Neurology Neurology
DX: R41.3 Other amnesia (principal); H53.9 Unspecified visual disturbance
CPT/HCPCS: 70551

== ENCOUNTER 2024-03-12 07:02 | Day surgery (SDC) | payer MEDICARE, BC, SELFPAY ==
--- NOTE | 2024-03-11 14:55 | HPE_ITS ---
Date of service: 03/12/24 Time of Service: 08:12 Assessment and Plan Assessment and plan (1) Serrated adenoma of colon: Status: Acute Assessment and plan: Plan: Colonoscopy w/ general & natural airway. The?patient will be scheduled by my office.? Informed consent is obtained for the procedural (explained in simple layman's terms that?the pt and/or family could understand) explaining risks vs benefits and alternatives to the procedure and consequences if we do not do the procedure and need/rational for the procedure. Risks include but are not limited to: bleeding, infection, perforation of colon.? This would necessitate emergency surgery to repair the damage w/ possible ostomy; and other associated complications w/ the required surgery. ? Also complications of anesthesia including aspiration, MT/CVA/, inability to complete the procedure. I discussed with the?patient would they could expect during the procedure, post procedure and recovery time and risks.? The patient understands that they need to have a ride home after the procedure.? The patient was given all this information in writing and expressed understanding. This document was created with voice activated software and may contain errors. 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 They completed a bowel prep with just a clear yellow residual effluent.? They not having any chest pain or shortness of breath, currently.? They are not experiencing any fever or chills.? They deny any productive cough or upper respiratory tract infection signs or symptoms.? They are not having abdominal pain, or nausea and vomiting.? They have not had any changes in medications, past medical history or past surgical history since previously being seen in the office. They have not had any accidents or have been in the ER since the clinic pre-operative evaluation. ??I reviewed the procedure with the patient today, including risks and benefits of the procedure, and what they could expect at home for recovery.? All questions are answered to the patient?s satisfaction today, and they are stable to proceed with the proposed procedure. Idalia was cleared for a CE by his nephrologists Patient has a interesting past medical history. He has a personal history of mantle cell lymphoma for which she is not currently under currently undergoing treating but watchful waiting. His brother has colorectal cancer and his son had colorectal cancer patient is very concerned that he is having colon cancer. He has had dysplastic polyps in the past. But none of these of become fairly large and could easily be removed. Currently patient has not noticed any changes in his bowel. Although he may have some more frequency of diarrhea. He has not noticed any bleeding in his bowels. He is actually gaining some weight. Last winter he had to have a kidney removed because of carcinoma. His renal function has not picked up like we would expect. He did have surgery for kidney cancer somewhere around January or March of last year. His GFR is prior to having the surgery were all greater than 60. Since he had the kidney completely removed, if GFR's have been down in the lower 20s and running around 25. n March it will be a year since he has had his surgery. Will also have a follow-up see him more extensive lab testing on his kidneys. I like to wait until that time to see how his remaining kidney is functioning. And give him some further time to recover from surgery. He will have CT Idalia is very worried with the fact that one of his brothers is already from colon cancer and another has stage IV disease.As it stands right now his creatinine is running around 6 3. And I am very concerned that if we do a bowel prep on his 1 remaining kidney we could throw him into a situation where he needed to be having dialysis dialysis. -He did have an MRI of the brain yesterday which is normal. He did see Dr. Sam because of the tremors that he has been having. She did start him on primidone Review of Systems All systems reviewed & are unremarkable except as noted in HPI and below PFSH All Active Problems Family history of malignant neoplasm of colon in relative diagnosed when older than 50 years of age (Acute) brother Vision changes (Acute) Memory change (Acute) Tremor (Acute) Elevated serum creatinine (Acute) Renal cell cancer (Acute) Tubular adenoma of colon (Acute) Neuropathy (Acute) Hx of lymphoma (Acute) Rosacea (Acute) Trigger finger (acquired) (Acute) 4th right Hip pain, right (Acute) Low back pain (Acute) Essential hypertension (Acute 04/20/13) Gastroesophageal reflux disease (Acute 09/04/12) managed with lansoprazole daily, carafate prn Hyperlipidemia (Acute) 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 Brittaney Walter, repeat colo 6 months Serrated adenoma of colon (Acute ~03/2020) 03/23/20 Dr. Brittaney Walter, repeat colo 6 months DJD (degenerative joint disease) (Chronic) Bilateral hand pain (Chronic) Managed by palliative care with tramadol, hand exercises. Hand muscle weakness (Chronic) Peripheral neuropathy (Chronic) idiopathic, possibly from T2DM, followed by Dr. Rawls Essential tremor (Chronic) Type 2 diabetes mellitus with neurologic complication, without long-term current use of insulin (Acute) SOB (shortness of breath) (Acute) Following recent COVID infection Personal history of COVID-19 (Acute ~12/19/21) Pneumonia due to COVID-19 virus (Acute) Pruritus due to systemic disorder (Acute) Medical History Encounter for palliative care requests MAID Colon polyp, hyperplastic (~03/2020) 03/23/20 Dr. 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) Injection: 03/06/18 Right rotator cuff tendonitis Injection: 03/06/18 Internal hemorrhoids 04/24/15; [facility] [place] Hiatal hernia 04/24/15; [facility] Elevated prostate specific antigen (PSA) (09/04/12) multiple neg biopsies Elevated PSA Surgical History H/O right radical nephrectomy (~02/2023) [facility] [place] History of hernia repair umibical History of colonoscopy (~03/2022) History of total bilateral knee replacement (TKR) Colonoscopy - MAC (~11/2020) 2013 Family History Brother Mantle cell lymphoma Social History Smoking/Tobacco Use Status: Former Tobacco Use Quit Date: 06/09/83 Smoking risk assessment performed?: Yes Alcohol Intake: former Drug use: Occasionally Substance use type: marijuana Household members: spouse Housing: house Current gender identity: male Do you feel safe at home: Yes (lives with ) Do you feel safe in your relationship?: Yes Meds Allergies and Home Medications Allergies Allergy/AdvReac Type Severity Reaction Status Date / Time Penicillins Allergy Severe HIVES Verified 03/10/24 14:43 Cephalosporins Allergy Intermediate Hives Verified 03/10/24 14:43 Sulfa (Sulfonamide Allergy Intermediate HIVES Verified 03/10/24 14:43 Antibiotics) starch Allergy Hives Verified 03/10/24 14:43 rituximab AdvReac Intermediate EXTREMITY Verified 03/10/24 14:43 TREMORS FABBY Inhibitors AdvReac Unknown COUGH Verified 03/10/24 14:43 Home Medications ?Medication ?Instructions ?Recorded ?Confirmed ?Type clindamycin HCl 300 mg capsule 300 mg PO PRN 03/05/16 03/12/24 History acetaminophen 500 mg tablet 500 mg PO Q6H PRN pain #60 tabs 05/18/19 03/12/24 Rx sucralfate 1 gram tablet (Carafate) 1 gm PO QACHS PRN heartburn #120 06/10/19 03/12/24 Rx tabs cholecalciferol (vitamin D3) 25 25 mcg PO DAILY 03/17/20 03/12/24 History mcg (1,000 unit) capsule omega-3 fatty acids 1,000 mg 1,000 mg PO DAILY 03/17/20 03/12/24 History capsule (Fish Oil Concentrate) sildenafil 100 mg tablet 100 mg PO DAILY PRN sexual activity 02/08/22 03/12/24 History ivermectin 1 % topical cream 1 applic topical DAILY #45 grams 02/20/22 03/12/24 Rx tramadol 50 mg tablet 50 mg PO BID PRN pain #180 tabs 12/11/22 03/12/24 Rx blood-glucose meter #1 ea 01/15/23 02/12/24 Rx blood-glucose meter #1 ea 02/17/23 02/12/24 Rx losartan 25 mg tablet 25 mg PO DAILY #90 tabs 03/25/23 03/12/24 Rx duloxetine 60 mg capsule,delayed 60 mg PO DAILY #90 caps 05/06/23 03/12/24 Rx release amlodipine 10 mg tablet See Rx Instructions .Route 10/13/23 03/12/24 Rx .COMPLEX #90 tabs lansoprazole 30 mg capsule,delayed 30 mg PO DAILY #90 caps 11/21/23 03/12/24 Rx release blood sugar diagnostic (Blood #400 ea 12/26/23 02/12/24 Rx Glucose Test strips) lancets 28 gauge (FreeStyle #300 ea 12/26/23 02/12/24 Rx Lancets) metformin 1,000 mg tablet 500 mg (1/2 x 1,000 mg) PO QDAY 12/29/23 03/12/24 Rx #90 tabs empagliflozin 25 mg tablet 25 mg PO QAM #90 tabs 01/11/24 03/10/24 Rx (Jardiance) glipizide 10 mg tablet, extended 10 mg PO DAILY #90 tabs 01/11/24 03/12/24 Rx release 24 hr gabapentin 600 mg tablet 600 mg PO BID #180 tabs 01/20/24 03/12/24 Rx bisacodyl 5 mg tablet,delayed 5 mg PO ONCE Colonoscopy Bowel 02/06/24 03/12/24 Rx release Prep #4 tabs peg 3350-electrolytes 236 240 ml PO Q10M #4,000 mL 02/06/24 03/12/24 Rx gram-22.74 gram-6.74 gram-5.86 gram solution (Golytely) primidone 50 mg tablet 50 mg PO QHS #30 tabs 02/12/24 03/12/24 Rx Exam Narrative Exam Narrative: PHYSICAL EXAM GENERAL APPEARANCE: Alert, healthy appearance, oriented, x 3,? in no acute distress HYDRATION: Well hydrated HEAD, EYES, EARS, NECK, THROAT: Head is normocephalic, pupils equal, round, reactive to light and accommodation, ocular movement intact, sclera clear and no jaundice. ?Dentition intact. LUNGS: normal respiration/normal chest excursion. ?Clear to auscultation bilaterally. ?No wheeze. ?HEART: Regular rate and rhythm. no murmurs ABDOMEN: soft and non-tender to palpation.? Normal bowel sounds.? Const Other: PHYSICAL EXAM GENERAL APPEARANCE: Alert, healthy appearance, oriented, x 3,? in no acute distress HYDRATION: Well hydrated HEAD, EYES, EARS, NECK, THROAT: Head is normocephalic, pupils equal, round, reactive to light and accommodation, ocular movement intact, sclera clear and no jaundice. ?Dentition intact. LUNGS: normal respiration/normal chest excursion. ?Clear to auscultation bilaterally. ? ?HEART: Regular rate and rhythm. no murmurs EXTREMITY: New onset benign tremor ABDOMEN: soft and non-tender to palpation.? Normal bowel sounds.? Time Spent Time spent with Patient: <40 minutes Time was spent: preparing to see the patient(eg.review tests), obtaining and/or reviewing separately otained hiistory, ordering medications,tests, procedures, referring, communicating with other health healthcare network consultant, indepentently interpreting results, counseling the patient, care coordination and other
--- NOTE | 2024-03-11 14:58 | PDOC.DSDIS_ITS ---
Date of service: 03/12/24 Time of Service: 09:59 Discharge Plan Disposition Patient Disposition: Home Condition: Good Discharge Details Reason For Visit: Colonoscopy Attending Provider: Amelia Walter Primary Care Provider: Seble Portre Meds and New Rx's Prescriptions: Continued omega-3 fatty acids [Fish Oil Concentrate] 1,000 mg capsule 1,000 mg PO DAILY cholecalciferol (vitamin D3) 25 mcg (1,000 unit) capsule 25 mcg PO DAILY ivermectin 1 % cream 1 applic topical DAILY Qty: 45 5RF Rx Instructions: For rosacea sildenafil 100 mg tablet 100 mg PO DAILY PRN (Reason: sexual activity) tramadol 50 mg tablet 50 mg PO BID PRN (Reason: pain) Qty: 180 3RF metformin 1,000 mg tablet 500 mg PO QDAY Qty: 90 4RF primidone 50 mg tablet 50 mg PO QHS Qty: 30 5RF losartan 25 mg tablet 25 mg PO DAILY Qty: 90 4RF (DME) blood-glucose meter Misc See Rx Instructions .ROUTE .MEDSUPPLY Qty: 1 0RF Rx Instructions: As directed e11.9 daily clindamycin HCl 300 MG capsule 300 mg PO PRN Patient Comments: 03/05/16 prior dental procedures. [facility] ([facility] [place]) blood-glucose meter Misc See Rx Instructions .ROUTE .MEDSUPPLY Qty: 1 0RF Rx Instructions: As directed E11.9. Free Style Lite Meter. TID testing duloxetine 60 mg capsule,delayed release(DR/EC) 60 mg PO DAILY Qty: 90 5RF amlodipine 10 mg tablet See Rx Instructions .ROUTE .COMPLEX Qty: 90 3RF Dose Instruction: TAKE 1 TABLET BY MOUTH EVERY DAY Rx Instructions: TAKE 1 TABLET BY MOUTH EVERY DAY lansoprazole 30 mg capsule,delayed release(DR/EC) 30 mg PO DAILY Qty: 90 4RF (DME) Blood Glucose Test Strip See Rx Instructions .ROUTE .MEDSUPPLY Qty: 400 5RF Rx Instructions: E11.9 QID testing due to high sugars. Freestyle Lite Strips (DME) lancets [FreeStyle Lancets] 28 gauge misc See Rx Instructions .ROUTE .MEDSUPPLY Qty: 300 5RF Rx Instructions: 3 times day testing E11.9, on insulin glipizide 10 mg tablet extended release 24hr 10 mg PO DAILY Qty: 90 4RF Jardiance 25 mg tablet 25 mg PO QAM Qty: 90 5RF gabapentin 600 mg tablet 600 mg PO BID Qty: 180 4RF peg 3350-electrolytes [Golytely] 236-22.74-6.74 -5.86 gram recon soln 240 ml PO Q10M Qty: 4000 0RF Rx Instructions: until fecal effluent is clear, for colonoscopy prep acetaminophen 500 mg tablet 500 mg PO Q6H PRN (Reason: pain) Qty: 60 2RF sucralfate [Carafate] 1 gram tablet 1 gm PO QACHS PRN (Reason: heartburn) Qty: 120 12RF Discontinued bisacodyl 5 mg tablet,delayed release (DR/EC) 5 mg PO ONCE Qty: 4 0RF Rx Instructions: Per Colonoscopy bowel prep instructions Discharge Instructions Additional Instructions: DSU Colonoscopy Post- Op Instructions Instructions for Everyone who is given Anesthesia: For your safety, please do the following for the next twenty-four (24) hours: *Do Not operate a motor vehicle (car, truck, motorcycle, etc.) *Do Not drink alcoholic beverages or use any recreational drugs for the first 24 hours or while taking pain medications. The medications in your body may have a reaction that can be dangerous. *Do Not make any important decisions or sign any important papers. Findings: Small polyp Follow up: My office will send you a letter in 2 to 3 weeks time with the results of the pathology and when to repeat the colonoscopy. Consider 5 years. 1. No lifting over 20 pounds or strenuous activity for the first 24 hours after your procedure. After 24 hours there are no restrictions on your activity but you may feel fatigued for a few days. 2. After you arrive home you may have a light meal and return to your normal diet as you can tolerate it without feeling sick to your stomach. 3. You may have a bloated, gaseous feeling in your belly (abdomen) after a colonoscopy. Passing gas and belching will help. Walking or lying down on your left side with your knees flexed may relieve the discomfort. Call the office at [phone] (Office) or [phone] (Hospital) right away if you notice any of the following: a.Vomiting of blood or ?coffee ground stools?. b.Rectal bleeding 1Tbsp, blood clots or continuous bleeding. c.Severe belly (abdominal) pain. d.A hard distended belly (abdomen) and an inability to pass gas. 4. Please don?t expect to have a normal BM (bowel movement) for 2-3 days after your procedure. 5. If there are questions regarding the findings of your procedure, please contact your doctor 6. If you are unable to contact your doctor with a problem, contact the hospital at [phone]. 7. Continue all your regular medications unless directed otherwise. I understand the above instructions and have no questions. Signature of Patient or Adult Escort Name of Responsible Adult Escort Signature of Nurse Date/Time Stand Alone Forms: Anesthesia Discharge Inst., Ania Amor (DSU) Activity:: See above Diet:: As Tolerated Discharge Orders Discharge Orders: Discharge Order (Routine); Ordered 03/12/24 Ordered By: Amelia Walter DS: Diagnosis Discharge Diagnosis (1) Essential hypertension: Status: Acute (2) Hyperlipidemia: Status: Acute (3) Type 2 diabetes mellitus with neurologic complication, without long-term current use of insulin: Status: Acute (4) Vision changes: Status: Acute (5) Tubulovillous adenoma polyp of colon: Status: Acute (6) Serrated adenoma of colon: Status: Acute Asessment and Plan: The patient is seen and examined after their colonoscopy.? The patient has been able to pass gas.? They are not having abdominal pain.? They have been able to tolerate liquids and a snack.? They do not have any nausea or vomiting.? They are not having any chest pain or shortness of breath.??? They are not having any rectal bleeding. Their vital signs have been stable-see nursing notes. We discussed findings during their colonoscopy, and any biopsies that were done/polyps that were removed. The patient will be sent a letter with any biopsy results, and when to repeat the colonoscopy.-see discharge instructions. Patient was given explicit instructions to follow-up regarding colonoscopy-refer to discharge instructions.? We reviewed resumption of medications. Patient verbalized understanding and discharged in stable and satisfactory condition- See nursing notes. 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
--- NOTE | 2024-03-11 18:39 | ANES.PREOP_ITS ---
General Info Date of Service Date Performed: 03/12/24 Height: 5 ft 10 in Weight: 107.501 kg Body Mass Index (BMI): 34.0 Surgical Procedure: Operation Date: 03/12/24 08:20 Proposed Procedure Side Surgeon sulaiman Walter, Meds Allergies and Home Medications Allergies Allergy/AdvReac Type Severity Reaction Status Date / Time Penicillins Allergy Severe HIVES Verified 03/10/24 14:43 Cephalosporins Allergy Intermediate Hives Verified 03/10/24 14:43 Sulfa (Sulfonamide Allergy Intermediate HIVES Verified 03/10/24 14:43 Antibiotics) starch Allergy Hives Verified 03/10/24 14:43 rituximab AdvReac Intermediate EXTREMITY Verified 03/10/24 14:43 TREMORS FABBY Inhibitors AdvReac Unknown COUGH Verified 03/10/24 14:43 Home Medication ?Medication ?Instructions ?Recorded clindamycin HCl 300 mg capsule 300 mg PO PRN 03/05/16 acetaminophen 500 mg tablet 500 mg PO Q6H PRN pain #60 tabs 05/18/19 sucralfate 1 gram tablet (Carafate) 1 gm PO QACHS PRN heartburn #120 06/10/19 tabs cholecalciferol (vitamin D3) 25 25 mcg PO DAILY 03/17/20 mcg (1,000 unit) capsule omega-3 fatty acids 1,000 mg 1,000 mg PO DAILY 03/17/20 capsule (Fish Oil Concentrate) sildenafil 100 mg tablet 100 mg PO DAILY PRN sexual activity 02/08/22 ivermectin 1 % topical cream 1 applic topical DAILY #45 grams 02/20/22 tramadol 50 mg tablet 50 mg PO BID PRN pain #180 tabs 12/11/22 blood-glucose meter #1 ea 01/15/23 blood-glucose meter #1 ea 02/17/23 losartan 25 mg tablet 25 mg PO DAILY #90 tabs 03/25/23 duloxetine 60 mg capsule,delayed 60 mg PO DAILY #90 caps 05/06/23 release amlodipine 10 mg tablet See Rx Instructions .Route 10/13/23 .COMPLEX #90 tabs lansoprazole 30 mg capsule,delayed 30 mg PO DAILY #90 caps 11/21/23 release blood sugar diagnostic (Blood #400 ea 12/26/23 Glucose Test strips) lancets 28 gauge (FreeStyle #300 ea 12/26/23 Lancets) metformin 1,000 mg tablet 500 mg (1/2 x 1,000 mg) PO QDAY 12/29/23 #90 tabs empagliflozin 25 mg tablet 25 mg PO QAM #90 tabs 01/11/24 (Jardiance) glipizide 10 mg tablet, extended 10 mg PO DAILY #90 tabs 01/11/24 release 24 hr gabapentin 600 mg tablet 600 mg PO BID #180 tabs 01/20/24 bisacodyl 5 mg tablet,delayed 5 mg PO ONCE Colonoscopy Bowel 02/06/24 release Prep #4 tabs peg 3350-electrolytes 236 240 ml PO Q10M #4,000 mL 02/06/24 gram-22.74 gram-6.74 gram-5.86 gram solution (Golytely) primidone 50 mg tablet 50 mg PO QHS #30 tabs 02/12/24 Current Visit Medications: Current Medications Generic Name Dose Route Start Last Admin Trade Name Freq PRN Reason Stop Dose Admin Hyoscyamine Sulfate 0.125 mg 03/12/24 02:38 Hyoscyamine 0.125 Mg Sl/Oral/Chew SL 04/11/24 02:37 DIRECTED PRN Ringer's Solution 1,000 mls @ 80 mls/hr 03/12/24 06:00 IV 04/10/24 23:59 [facility]ION [facility] IV Miscellaneous Supplies 1 each 03/12/24 06:00 Iv Access IV 04/10/24 23:59 DIRECTED [facility] Ondansetron HCl 4 mg 03/12/24 02:38 Ondansetron 4 Mg/2 Ml Vial IVP 04/11/24 02:37 Q4H PRN PRN Nausea / Vomiting Sodium Chloride 0 ml 03/12/24 06:00 Normal Saline Flush 10 Ml Syr IV 04/10/24 23:59 PRN PRN Sodium Chloride 0 ml 03/12/24 06:00 Normal Saline 10 Ml Vial IJ 04/10/24 23:59 DIRECTED PRN Sterile Water 0 ml 03/12/24 06:00 Water,Injection,Sterile 10 Ml Vial IJ 04/10/24 23:59 DIRECTED PRN PFSH Active Problems Active Problems: Problem Status Onset Code Family history of malignant neoplasm of colon in relative diagnosed when older than 50 years of age Acute Z80.0 Vision changes Acute H53.9 Memory change Acute R41.3 Tremor Acute R25.1 Elevated serum creatinine Acute R79.89 Renal cell cancer Acute C64.9 Tubular adenoma of colon Acute D12.6 Neuropathy Acute G62.9 Hx of lymphoma Acute Z85.72 Rosacea Acute L71.9 Trigger finger (acquired) Acute M65.30 Hip pain, right Acute M25.551 Low back pain Acute M54.50 Essential hypertension Acute 04/20/13 I10 Gastroesophageal reflux disease Acute 09/04/12 K21.9 Hyperlipidemia Acute E78.5 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 Acute 03/05/16 C83.12 Sleep disturbance, unspecified Chronic 09/04/12 G47.9 Dupuytren's contracture of right hand Chronic M72.0 Tubulovillous adenoma polyp of colon Acute ~03/2020 D12.6 Serrated adenoma of colon Acute ~03/2020 D12.6 DJD (degenerative joint disease) Chronic M19.90 Bilateral hand pain Chronic M79.641, M79.642 Hand muscle weakness Chronic M62.81 Peripheral neuropathy Chronic G62.9 Essential tremor Chronic G25.0 Type 2 diabetes mellitus with neurologic complication, without long-term current use of insulin Acute E11.49 SOB (shortness of breath) Acute R06.02 Personal history of COVID-19 Acute ~12/19/21 Z86.16 Pneumonia due to COVID-19 virus Acute U07.1, J12.82 Pruritus due to systemic disorder Acute L29.8 Medical History Medical History Encounter for palliative care requests MAID Colon polyp, hyperplastic (~03/2020) 03/23/20 Dr. 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) Injection: 03/06/18 Right rotator cuff tendonitis Injection: 03/06/18 Internal hemorrhoids 04/24/15; [facility] [place] Hiatal hernia 04/24/15; [facility] [place] Elevated prostate specific antigen (PSA) (09/04/12) multiple neg biopsies Elevated PSA Surgical History Surgical History H/O right radical nephrectomy (~02/2023) [facility] [place] History of hernia repair umibical History of colonoscopy (~03/2022) History of total bilateral knee replacement (TKR) Colonoscopy - MAC (~11/2020) 2013 Tobacco Smoking/Tobacco Use Status: Former Tobacco Use Alcohol Alcohol Intake: former Substance Use Substance use: Occasionally Substance use type: marijuana Vital Signs and Lab Results Vital Signs Most Recent Vital Signs in EMR: Temp Pulse Resp BP Pulse Ox 36.1 C L 68 16 115/79 97 03/12/24 07:17 03/12/24 07:17 03/12/24 07:17 03/12/24 07:17 03/12/24 07:17 Lab Results Blood Type / Crossmatch: No Data to Display Complete Blood Count: No Data to Display Complete Metabolic Panel: No Data to Display Liver Function Panel: No Data to Display Coagulation Panel: No Data to Display Cardiac Panel: No Data to Display Arterial Blood Gas: No Data to Display Venous Blood Gas: No Data to Display Pancreas Panel: No Data to Display Thyroid Panel: No Data to Display Infectious Disease: No Data to Display Blood Cultures: No Data to Display Toxicology Panel: No Data to Display Anesthesia Assessment and Plan Anesthesia History Personal History: No History of Anesthesia Complications Family History: No Family History of Anesthesia Complications Exercise Tolerance Exercise Tolerance: Metabolic Equivalents>4 Cardiac & Pulmonary Exam Cardiac Exam: Normal S1/S2 Heart Sounds Pulmonary Exam: Clear Bilateral Breath Sounds Implantable Cardiac Device Does patient have a Pacemaker or an ICD?: No Airway Exam Known Difficult Airway: No Mallampati Class: 1 Mouth Opening: Normal (> 3cm) Thyromental Distance: Greater than 3 cm Neck Range of Motion: Full ROM Neck Circumference: Normal Teeth Condition: Normal Dentition ASA Classification ASA Score: ASA 3 Emergency Case?: No NPO Status NPO Status: NPO Clears >2 hours, Solids >8 hours Anesthesia Plan Resuscitation Status: Full Code Anesthesia Technique: General Anesthesia Airway Planned: Natural Airway Monitors Used: Standard Monitors Preoperative Comments:: 73 yo male with family history of colon CA and personal history of polyps for colo. Sig PMHx: HTN (amlodipine, losartan. well controlled. checks BP at home. ), GERD (lansoprazole. well controlled), neuropathy, tremor, renal CA/nephrectomy, CKDIII/, DM2 (A1c 6.0. jardiance, glipizide, metformin. ~115 today), former smoker, occ EtOH/cannabis
[2024-03-12 07:17] VITALS: BP 115/79; PULSE 68; RESP 16; TEMP 36.1; O2SAT 97
[2024-03-12] MEDS: Lactated Ringers 1,000 ML 80 ML IV (07:50)
[2024-03-12 07:52] VITALS: BMI 34.0
--- NOTE | 2024-03-12 08:40 | BOWEL_PTH ---
PATIENT: Idalia Estrada LOC: [facility] U#:[id number] AGE/SX: 73/M ROOM: RE03/12/[address]: Amelia Walter : 1950 BED: DIS: 03/12/2024 SPEC #: [id number] RECD: 03/12/24 12:14 STATUS: [place]LL REQ #: [id number] NERISSA: 03/12/24 08:[address]: Amelia Walter DEPT: Surgical Specimen RECD BY: Melany Lorenzo ENTERED: 03/12/24 12:14 SP TYPE: Bowel OTHR DR: Seble Porter MD, DC Tissues: 1 - BIOPSY BOWEL Procedures: GROSS AND MICRO LEVEL 4 Comments: [id number]
[2024-03-12 09:10] VITALS: BP 106/61; PULSE 59; RESP 16; TEMP 36.3; O2SAT 96
--- NOTE | 2024-03-12 09:20 | W.ANESPOSTOP ---
Postoperative Evaluation Date, Time and Location Date Performed: 03/12/24 Time Performed: 09:21 Patient Location: Day Surgery Unit Vital Signs Most Recent Imported Vital Signs: Most Recent Vital Signs Temp Pulse Resp BP Pulse Ox 36.3 C L 59 L 16 106/61 96 03/12/24 09:10 03/12/24 09:10 03/12/24 09:10 03/12/24 09:10 03/12/24 09:10 Pain Score Most Recent Pain Score: Most Recent Pain Score Pain Level 0 03/12/24 09:10 Assessment Mental Status: Awake (Alert & Oriented to Patient Baseline) Airway and Respiratory Function: Patent airway with normal (patient baseline) respiratory exam Cardiovascular Function: Hemodynamically Stable Hydration Status: Adequately Hydrated Nausea & Vomiting: No Nausea or Vomiting Pain: Pt. Denies Any Pain Peripheral Nerve Block: Patient did not receive a nerve block
[2024-03-12 09:33] VITALS: BP 127/76; PULSE 55; RESP 17; TEMP 36.3; O2SAT 97
--- NOTE | 2024-03-12 09:57 | W.COLOREPORT ---
Date of service: 03/12/24 Time of Service: 09:57 Colonoscopy Report Date of procedure: 03/12/24 Pre-op diagnosis general: History of advanced adenoma and first-degree family member with colon cance Post-op diagnosis procedure note: other (Small polyp and internal hemorrhoids) Surgeon: Amelia Walter Anesthesia Type: General:No Airway Estimated blood loss (mL): 1 Pathology: other Complications: None Disposition: same day Prep: Miralax/Dulcolax Retraction Time: 18 Procedure Description: After informed consent was obtained, explaining risks of the procedure, including but not limits to: bleeding, infections, complications of anesthesia, perforations (which may require antibiotics and /or surgery and stay in the hospital), and abdominal pain/cramping. The patient was taken to the procedure room and placed in a left decubitous position. Monitors were applied and a time out was done. The patients name, date of , procedure, allergies to medications and metal in their body was reviewed. The patient was then sedated. Once sedated and comfortable a rectal exam was done. External exam was normal. Internal exam revealed a normal sphincter tone and no palpable masses. The previously lubricated Olympus scope was then introduced (see RN notes for scope number) and retrofelexed. Grade 2 internal hemorrhoids all 3 columns were identified. The scope was then advanced to the cecum without difficulty. The TI and appendiceal orifice were identified. The scope was then slowly retracted over 18 minutes back into the rectum. Polyps: A flat, .5cm polyp was found at cecum. This was removed with a cold biting forceps. All of the specimen was retrieved. This will be sent to pathology. There is no bleeding noted from the polypectomy site. Diverticula: None. the mucosa is pink and healthy w/ a normal vascular pattern. The scope was removed, and the patient was woken up and taken back to Same day surgery in stable condition. The patient tolerated the procedure well and there were no immediate complications. Follow up: The patient should follow up in 5 years, unless they develop changes in bowel habits or other new gastrointestinal complaints. Southside Bowel Prep Southside Bowel Prep Right Colon: 3 Left Colon: 3 Transverse Colon: 3 Total Score: 9
--- NOTE | 2024-03-12 10:01 | W.ANESPOSTOP ---
Postoperative Evaluation Date, Time and Location Date Performed: 03/12/24 Time Performed: 10:01 Patient Location: Day Surgery Unit Vital Signs Most Recent Imported Vital Signs: Most Recent Vital Signs Temp Pulse Resp BP Pulse Ox 36.3 C L 55 L 17 127/76 97 03/12/24 09:33 03/12/24 09:33 03/12/24 09:33 03/12/24 09:33 03/12/24 09:33 Most Recent Vital Signs Temp Pulse Resp BP Pulse Ox 36.3 C L 59 L 16 106/61 96 03/12/24 09:10 03/12/24 09:10 03/12/24 09:10 03/12/24 09:10 03/12/24 09:10 Pain Score Most Recent Pain Score: Most Recent Pain Score Pain Level 0 03/12/24 09:33 Assessment Mental Status: Awake (Alert & Oriented to Patient Baseline) Airway and Respiratory Function: Patent airway with normal (patient baseline) respiratory exam Cardiovascular Function: Hemodynamically Stable Hydration Status: Adequately Hydrated Nausea & Vomiting: No Nausea or Vomiting Pain: Pt. Denies Any Pain Peripheral Nerve Block: Patient did not receive a nerve block
== END 2024-03-12 10:24 | disposition home or self-care (01) ==
PROVIDERS: PCP Family Medicine; Visit Provider Surgery
PROC: 0DJD8ZZ Inspection of Lower Intestinal Tract, Via Natural or Artificial Opening Endoscopic (ICD-10-PCS; CPT 45378; principal; 2024-03-12 08:15)
DX: Z12.11 Encounter for screening for malignant neoplasm of colon (principal); Z80.0 Family history of malignant neoplasm of digestive organs; K63.5 Polyp of colon; K64.8 Other hemorrhoids; K63.89 Other specified diseases of intestine
CPT/HCPCS: 45380; 88305; J2704

== ENCOUNTER 2024-03-15 02:39 | Outpatient (CLI) | payer MEDICARE, BC, SELFPAY ==
[2024-03-15 13:04] LABS: ALT 18 U/L (16-63); AST 20 U/L (15-37); Albumin 3.9 g/dL (3.4-5.0); Alkaline Phosphatase 59 U/L (46-116); Anion Gap 13.7 mmol/L (3-11); BUN 27 mg/dL (7-18); Bilirubin, Total 0.42 mg/dL (0.2-1.0); CO2 19.3 mmol/L (21.0-32.0); CREATININE 2.1 mg/dL (0.70-1.30); Calcium 9.4 mg/dL (8.5-10.1); Chloride 109 mmol/L (98-107); Estimated GFR 32.22 (mL/min/1.73m2); Glucose 135 mg/dL (74-106); Potassium 4.5 mmol/L (3.5-5.1); Sodium 142 mmol/L (136-145); Total Protein 7.9 g/dL (6.4-8.2)
[2024-03-15 13:07] LABS: Hemoglobin A1C 6.1 % (<5.7)
== END 2024-03-15 02:40 | disposition home or self-care (01) ==
LOC: LOS 02:39
PROVIDERS: PCP Family Medicine; Visit Provider Family Medicine
DX: I10 Essential (primary) hypertension (principal); E11.9 Type 2 diabetes mellitus without complications
CPT/HCPCS: 36415; 80053; 83036

== ENCOUNTER → 2024-04-14 13:21 | Outpatient (BNVA) | payer MEDICARE, BC, SELFPAY | PROVIDERS: PCP Family Medicine; Visit Provider Psychiatry & Neurology Neurology | DX: G62.9 Polyneuropathy, unspecified (principal); R41.3 Other amnesia; H53.9 Unspecified visual disturbance; G25.0 Essential tremor | CPT/HCPCS: 99215 ==

== ENCOUNTER 2024-07-02 02:14 | Outpatient (CLI) | payer MEDICARE, BC, SELFPAY ==
[2024-07-02 12:28] LABS: HCT 42.2 % (40.0-50.0); HGB 13.2 g/dL (13.5-17.5); MCH 30.7 pg (27.0-33.0); MCHC 31.3 % (32.0-36.0); MCV 98 fL (80-95); MPV 9.3 fL (8.0-11.0); Platelet Count 234 10^3/uL (130-400); RDW 13.5 % (11.8-14.1); RDW-SD 48.8 fL; WBC 4.46 10^3/uL (4.4-10.8)
[2024-07-02 13:02] LABS: Hemoglobin A1C 6.3 % (<5.7)
[2024-07-02 13:06] LABS: ALT 16 U/L (16-63); AST 15 U/L (15-37); Albumin 3.8 g/dL (3.4-5.0); Alkaline Phosphatase 58 U/L (46-116); Anion Gap 9.3 mmol/L (3-11); BUN 30 mg/dL (7-18); Bilirubin, Total 0.37 mg/dL (0.2-1.0); CO2 25.7 mmol/L (21.0-32.0); Calcium 9.6 mg/dL (8.5-10.1); Calculated LDL 114 mg/dL (<100); Chloride 108 mmol/L (98-107); Cholesterol 233 mg/dL (<200); Estimated GFR 34.16 (mL/min/1.73m2); Ferritin 110 ng/mL (26-388); Glucose 119 mg/dL (74-106); HDL Cholesterol 45 mg/dL (40-60); Potassium 4.3 mmol/L (3.5-5.1); Sodium 143 mmol/L (136-145); Total Protein 7.8 g/dL (6.4-8.2); Triglyceride 370 mg/dL (<150)
[2024-07-02 13:07] LABS: COMMENT (LAB VIEW ONLY) 106.38 mg/dL; Microalb ug/mg Crea 26.9 ug/mg Cr
[2024-07-02 13:08] LABS: Iron 65 ug/dL (65-175)
[2024-07-02 13:10] LABS: Vitamin B12 738 pg/mL (193-986)
[2024-07-02 18:13] LABS: PSA, Diagnostic 8.8 ng/mL (<=6.5)
[2024-07-02 19:49] LABS: Hepatitis C Ab w Rflx HCV PCR Negative (Negative)
== END 2024-07-02 02:15 | disposition home or self-care (01) ==
LOC: LOS 02:15
PROVIDERS: Psychiatry & Neurology Neurology; PCP Family Medicine; Visit Provider Physician Assistant
DX: G62.9 Polyneuropathy, unspecified (principal); D50.9 Iron deficiency anemia, unspecified; E11.9 Type 2 diabetes mellitus without complications; Z11.59 Encounter for screening for other viral diseases; I10 Essential (primary) hypertension; R97.20 Elevated prostate specific antigen [PSA]
CPT/HCPCS: 36415; 80053; 80061; 85027; 86803; 82043; 82570; 82607; 82728; 83036; 83540; 84153

== ENCOUNTER → 2024-11-10 12:41 | Outpatient (BNVA) | payer MEDICARE, BC, SELFPAY | PROVIDERS: PCP Family Medicine; Referring Provider Family Medicine; Visit Provider Psychiatry & Neurology Neurology | DX: R41.3 Other amnesia (principal); E11.42 Type 2 diabetes mellitus with diabetic polyneuropathy; H53.9 Unspecified visual disturbance; G25.0 Essential tremor; E11.59 Type 2 diabetes mellitus with other circulatory complications; I12.9 Hypertensive chronic kidney disease with stage 1 through stage 4 chronic kidney disease, or unspecified chronic kidney disease; N18.9 Chronic kidney disease, unspecified; Z90.5 Acquired absence of kidney | CPT/HCPCS: 99215 ==

== ENCOUNTER 2025-04-08 03:46 | Outpatient (CLI) | payer MEDICARE, BC, SELFPAY ==
[2025-04-08 11:48] LABS: Anion Gap 7.6 mmol/L (3-11); BUN 30 mg/dL (7-18); CO2 25.4 mmol/L (21.0-32.0); Calcium 9.6 mg/dL (8.5-10.1); Chloride 106 mmol/L (98-107); Glucose 107 mg/dL (74-106); Potassium 5.2 mmol/L (3.5-5.1); Sodium 139 mmol/L (136-145)
== END 2025-04-08 03:47 | disposition home or self-care (01) ==
LOC: LBO 03:46
PROVIDERS: PCP Family Medicine; Visit Provider Nurse Practitioner Family
DX: G62.9 Polyneuropathy, unspecified (principal)
CPT/HCPCS: 36415; 80048